=== PATIENT | female | born 1950 | race Caucasian/White ===

== ENCOUNTER 2019-09-12 01:14 | Day surgery (SDC) | payer MEDICARE, SELFPAY ==
[2019-08-24 13:11] VITALS: BP 142/66; PULSE 108; RESP 18; TEMP 36.6; O2SAT 99; BMI 25.1
--- NOTE | 2019-09-07 14:56 | HP_ITS ---
DATE OF SERVICE: 09/12/2019 ADMIT DIAGNOSIS: Degenerative joint disease, left knee. HISTORY OF PRESENT ILLNESS: The patient is a 68-year-old female patient of Dr. Calero presents today for a left total knee arthroplasty. She has had an [place] partial knee replacement done on the right, which she has done well. Unfortunately, she continues to have symptoms in the left knee. She has fwwk-fs-nfrr arthritis in the medial compartment with some narrowing in the lateral compartment on a stress view as well as some mild subluxation. Dr. Mauro does not feel she would be an ideal candidate for partial knee and therefore has recommended a total knee arthroplasty. She has tried anti-inflammatories in the past, which does not help. She has not had any cortisone injections in her knees. She has had them in her opposite knee prior to her surgery and did not give her relief, so she has declined shots. She is having symptoms on a very regular basis. She has reached a point where she feels she is ready to proceed with total knee arthroplasty. PAST MEDICAL HISTORY: Significant for the partial knee in the past. She has had a hysterectomy as well. CURRENT MEDICATIONS: She takes sertraline 25 mg daily. States she has reaction with codeine and oxycodone, which both give her headaches. FAMILY HISTORY: Significant for stroke and cancer. SOCIAL HISTORY: She is a nonsmoker. REVIEW OF SYSTEMS: Negative. PHYSICAL EXAMINATION: VITAL SIGNS: She is 5 feet 6.5 inch, 154 pounds. Other vital signs per nursing on the morning of surgery. HEENT: Grossly normal. LUNGS: Clear bilaterally. HEART: Regular rate and rhythm. EXTREMITIES: She walks without a limp. Her left knee range of motion is from 7 to 140. She has [id number]-[id number] effusion. She has a large popliteal cyst palpable, which is nonpulsatile. 2+ dorsalis pedis, posterior tibial pulse. Normal stability with mild medial pseudolaxity. SKIN: All normal. Hip range of motion is full without discomfort. Negative Stinchfield maneuver. Normal quad strength. Normal sensation in the left lower extremity. X-RAYS: Demonstrate fqkx-tr-fzlp arthritis in the medial compartment with mild lateral compartment arthritis. IMPRESSION: The patient has severe medial compartment arthritis with continued symptoms. She would like to proceed with total knee at this point. Surgical procedure as well as risks and complications were discussed. All questions were answered. We will proceed. The patient will see her primary care doctor for presurgical clearance. She will avoid any aspirin and ibuprofen products 1 week prior to surgery. Due to her reactions with codeine and oxycodone, we will try to maximize non-narcotic use with Celebrex twice a day. We will also use Lovenox for DVT prophylaxis rather than Eliquis. We can use Celebrex twice a day. Dr. Mauro has also discussed with her the use of gabapentin as well. Her nasal swab was negative. Her creatinine is elevated at 1.10 with a GFR of 49. Rest of her Chem panel is within normal limits. Hemoglobin 13.8 and platelets are 198. D I MT: Mary
[2019-09-12] VITALS (11 sets, daily range): BP systolic 110–137; BP diastolic 55–79; PULSE 84–107; RESP 12–18; TEMP 36.5–36.8; O2SAT 96–100; BMI 24.6
--- NOTE | ~2019-09-12 | XR_ITS ---
EXAMINATION: XR knee LT 2V DATE: 09/12/2019 11:02 INDICATION: Total left knee arthroplasty. Postop. TECHNIQUE: 2 views of left knee were obtained. COMPARISON: None. FINDINGS: There is a total left knee arthroplasty without patellar resurfacing in near-anatomic align ment. No fracture. There are tiny osteophytes of the patella. There is gas in the knee joint and soft tissues, consistent with recent surgery. IMPRESSION: 1. Total left knee arthroplasty in near-anatomic alignment. Reviewed, dictated and finalized at location A. IAC CARE UNIT NURSE
[2019-09-12] MEDS: LACTATED RINGERS 1,000 ML 30 ML IV CONT ×2 (06:30→10:58)
[2019-09-12] MEDS: IBUPROFEN IV 800 MG/200 ML 800 MG/200 ML BAG 400 MG IVPB (06:30)
--- NOTE | 2019-09-12 06:44 | WPDANESEPPF ---
Anes - Initial Pre Proc Eval Procedure: Operation Date: 09/12/19 07:30 Proposed Procedures p Left Total Knee Arthroplasty - Ermias Mauro MD Date/Time: 09/12/19 06:44 Surgeon: Ermias Mauro MD Pre Op Diagnosis: OA Left Knee Patient Data Age: 68 Gender: F Height: 1.68 m Weight: 69.2 kg Last Vital Signs Temp 36.6 C 08/24/19 13:11 Pulse 108 H 08/24/19 13:11 Resp 18 08/24/19 13:11 BP 142/66 H 08/24/19 13:11 Pulse Ox 99 08/24/19 13:11 Allergies Allergy/AdvReac Type Severity Reaction Status Date / Time adhesive tape Allergy Intermediate Blister Verified 09/12/19 06:12 tramadol Allergy Intermediate Other Verified 09/12/19 06:12 codeine Allergy Unknown Nausea and Verified 09/12/19 06:12 Vomiting meperidine AdvReac Severe KIDNEY Verified 09/12/19 06:12 ISSUES oxycodone AdvReac Intermediate HARD TO Verified 09/12/19 06:12 WAKE UP Home Medications Medication Instructions Recorded Confirmed Type sertraline 12.5 mg PO DAILY 08/24/19 09/12/19 History ECG: Date of Service: 08/24/19 Procedure(s): CA 12 lead EKG Accession Number(s): [id number] cc: ~ Measurements Intervals [place] Rate: 93 P: 59 HI: 138 QRS: 6 QRSD: 73 T: 71 QT: 303 QTc: 377 Interpretive Statements SINUS RHYTHM LOW QRS VOLTAGE IN PRECORDIAL LEADS BORDERLINE R WAVE PROGRESSION, ANTERIOR LEADS BORDERLINE T WAVE ABNORMALITY- LATERAL LEADS BASELINE ARTIFACT- I, II, III, AVR, AVL, AVF BORDERLINE ECG Electronically Signed On 08-24-2019 15:24:16 TOPOGRAPHIC COMPUTATOR by Ezekiel Daly D.O. Dictated By: Ezekiel Daly DO 08/24/19 1403 Patient hx anesthesia problems: post op nausea/vomiting Family hx anesthesia problems: none PMFSH Past Medical History Medical History (Updated 09/12/19 @ 06:47 by Nolberto Hansen MD) Anxiety Arthritis Hypercholesterolemia IBS (irritable bowel syndrome) Family History Family History (Updated 07/07/16 @ 10:18 by DOCTOR UNKNOWN) Mother Cerebrovascular accident Sibling Family history of arthritis Family history of heart disease in male family member before age 55 Father Family history of malignant neoplasm Grandparent Family history of malignant neoplasm of brain Family history of emphysema Family history of heart disease in male family member before age 55 Social History Social History Smoking status: Never smoker Second hand tobacco smoke exposure: Yes Alcohol intake: current Anes - Eval Final PreProcedure Day of Procedure 09/12/19 06:44 Patient weight: normal Heart: regular rate and rhythm Lungs: clear to auscultation and normal air movement Airway: Mallampati scale class II Neurological: alert and oriented Last oral intake: >/= 8 hours ASA classification: II Emergent: no Anesthetic plan: proceed Anesthesia type and monitoring: general LMA Informed Consent: The patient's anesthetic plan and its attendant risks and benefits were discussed with the patient/family/POA. Questions were solicited and answers provided to the satisfaction of the patient/family/POA.
[2019-09-12] MEDS: SCOPOLAMINE 1.5 MG PATCH TRANSDERM (07:19)
--- NOTE | 2019-09-12 07:22 | WPDHPUPDATE1 ---
History and Physical Update Update Date/Time: 09/12/19 07:22 History and Physical has been reviewed, including an updated exam of the patient. There are NO changes in the patient's condition. Risks, benefits, and alternatives have been discussed and questions answered. Patient agrees to proceed with procedure.
[2019-09-12] MEDS: ceFAZolin 2 GM/D5W 50 ML 2 GM/50 ML BAG IVPB (07:30)
[2019-09-12] MEDS: ceFAZolin SODIUM 1 GM VIAL 3 GM IRRIGATION (08:07)
[2019-09-12] MEDS: GENTAMICIN BONE CEMENT REFOBACIN 1 EACH TOPICAL (08:08)
[2019-09-12] MEDS: ceFAZolin SODIUM 1 GM VIAL IV PUSH (09:54)
--- NOTE | 2019-09-12 11:33 | PM.PROC ---
Procedure Note - Detailed Date of procedure: 09/12/19 Pre-op diagnosis: OA Left Knee Osteoarthritis left knee Post-op diagnosis: same Procedure performed: Left total knee arthroplasty Description of procedure: Patient brought to the operating room general anesthesia was administered left knee prepped draped usual fashion. She received 2 g of Ancef 1 g of vancomycin preoperatively. Because of her history from severe nausea with narcotics in anesthesia a scopolamine patch was applied she received 8 mg of Decadron IV. Left knee was prepped draped usual fashion. Limb was exsanguinated tourniquet elevated to 250 mm Hg. 7 inches longitudinal midline incision was used and a vastus medialis splitting approach utilized. Infrapatellar and suprapatellar fat pads were excised and a quadriceps synovectomy carried out. The patella showed some marginal osteophytes but had no thinning of the articular cartilage. Osteophytes were trimmed. A conservative lateral facetectomy performed. I felt her patella was most suitable for non resurfacing. A guide jackie was inserted down the femoral canal after aspiration canal contents using the 5? valgus cutting bushing 9 mm of bone removed the distal femur. next the tibial plateau was cut removing 4 mm of the low point of the medial tibial plateau. Meniscus remnants were excised the anterior medial and medial tibial osteophytes removed PCL recessed. Flexion gap measured 8 mm medially 10 laterally. Whitesides line and the trans epicondylar axis were drawn on the femur. 2? of external rotation matched Whitesides line and the condylar axis appropriately. Using the 67.5 vanguard cutting block AP and chamfer cuts were made. this gave a femoral trial that fit line to line throughout. Alignment of the tibial cut was confirmed to be accurate. With a 10 mm CR insert in place we had plate medially and laterally little tighter medially than laterally and we lacked extension but we were tighter medially and laterally. the tibia was sized to a 71 punched and the microsoft bi architect medial osteophyte removed the tibial plateau. On trialing the 10 mm PS insert at 90? gave appropriate stability with 1 mm medial 1-2 mm lateral opening at 90?. We lacked 10? of extension. there was no plate medially or laterally in this position. additional 2 mm of bone removed the distal femur. Posterior femoral osteophytes removed. a very conservative central capsular release performed and we trialed again. this time the knee had a fairly positive bounce. There was again no plate medially or laterally in full extension. therefore an additional mm of bone was removed the distal femur chamfer cuts revisited in this time on trialing the knee had full extension the 0.5 mm medial opening 1-2 lateral opening again appropriate stability in flexion in flexion and patellar tracking was central throughout range of motion. lug holes were drilled on the femur trial components removed step drill used to make multiple perforations in the tibial plateau and distal posterior femur bony surfaces thoroughly irrigated and dried. The 2 batches of Biomet cement 1 continue gentamicin powder the cement was applied the tibial component and the femoral component. Cement applied to tibia pressurized in the bone fully seated cement applied to the femur and the femoral component fully seated we placed 11 mm 5 and 1 trial insert and brought the knee out to close to full extension for cement pressurization and tourniquet was released and approximately 110 min. After cement hardening excess cement was removed. no local anesthetic cocktail was injected during the cement curing process. hemostasis was confirmed. We trialed with the 10 insert and this gave us the same findings as above and 10 was placed without difficulty locked the locking pin range of motion stability patellar tracking reconfirmed. Arthrotomy was closed 2. Vicryl Plus 1. You directional strata fix kyara suture and 1. Vicryl in the vastus split. Skin close
[2019-09-12] MEDS: ONDANSETRON INJ 4 MG/2 ML VIAL IV PUSH (11:35)
--- NOTE | 2019-09-12 12:18 | ADMGEN ---
This patient, Katy Roman, was admitted to -. Patient/family oriented to hospital policies and general routines including ID bracelet, bed and alarms, visiting hours, pain management, procedures, bathroom and other care routines, personal items, smoking policy, room service/diet, and visiting hours. Valuables list has been completed. Information on how to activate the Rapid Response Team has been discussed. Patient/Family are encouraged to report perceived risks to care and to ask questions if they do not understand what they are told or what they should do.
[2019-09-12] MEDS: ACETAMINOPHEN 500 MG TABLET 1000 MG PO ×2 (13:58→20:19)
--- NOTE | 2019-09-12 14:37 | PM.IMCN ---
Assessment and Plan Assessment and plan (1) S/P total knee arthroplasty: Code(s): Z96.659 - Presence of unspecified artificial knee joint Status: Acute Assessment and Plan: Postop care per Ortho. DVT prophylaxis per ortho and looks like she is on Eliquis. She also has bilateral SCDs. Patient had some postop nausea but requested that the scopolamine patch. Moved due to the dryness in her eyes and her mouth. She has no discomfort at this time. (2) Anxiety: Code(s): F41.9 - Anxiety disorder, unspecified Status: Chronic Assessment and Plan: Continue with Zoloft. Patient stated that she uses a low very low dose also for palpitations due to her anxiety and has not had any palpitations very long time. (3) Hypercholesterolemia: Code(s): E78.00 - Pure hypercholesterolemia, unspecified Status: Chronic Assessment and Plan: Diet control HPI Data of Consult Consult date: 09/12/19 Requesting Physician: Ermias Mauro MD Primary Care Provider: Ermias Calero, Consult Narrative Narrative: Katy Roman is a 68 year old female who has severe degenerative joint disease. The patient had a partial right knee approximately 3 years ago and did fairly well with. She tried injections with her right knee in the did work so she did not attempt any injections in the knee. Patient continue to have moderate discomfort to the left knee and had bone on bone arthritis in the medial compartment with some narrowing in the lateral compartment stress views. The patient tried anti-inflammatories in the past which did not help. Initially she was going to have a partial left the but it was decided to do a total arthroplasty today. Patient is taking pain medication in the past and the pain has affected her daily life. See operative note per Dr. mauro. The patient had some postop nausea and had a scopolamine patch on however caused her to have very dry eyes and mouth and was removed. She has no complaints of any nausea at this time. No complaints of any discomfort. Date of service 09/12/[address] mauro for the opportunity to consult on this pleasant lady. Review of Systems Review of Systems: Narrative: Dry eyes and dry mouth All systems reviewed & are unremarkable except as noted in HPI and below Constitutional: Constitutional: Reports as per HPI and Reports no additional constitutional complaints Eyes: Eyes: Reports as per HPI and Reports no additional eye complaints ENT: Reports system reviewed and no additional complaints, except as documented and Reports Normal hearing present Cardiovascular: Cardiovascular: Reports no additional cardiovascular complaints Respiratory: Respiratory: Reports no additional respiratory complaints and Reports no additional respiratory complaints Gastrointestinal: Gastrointestinal: Reports as per HPI and Reports no additional gastrointestinal complaints Musculoskeletal: Musculoskeletal: Reports no additional musculoskeletal complaints Integumentary/Breasts: Skin/Breast: Reports system reviewed and no additional complaints, except as docu and Reports as per HPI Neurologic: Reports system reviewed and no additional complaints, except as documented, Reports as per HPI and Reports Normal hearing present Psychiatric: Psychiatric: Reports no additional psychiatric complaints and Reports as per HPI Endocrine: Endocrine: Reports no additional endocrine complaints Hematologic/Lymphatic: Hematologic/Lymphatic: Reports no additional hematologic/lymphatic complaints Allergic/Immunologic: Allergic/Immunologic: Reports no additional allergic/immunologic complaints [facility] Past Medical History Medical History (Updated 09/12/19 @ 14:48 by Oriana Benton NP) Anxiety Arthritis Benign tumor of skin of perineum Removed Hypercholesterolemia IBS (irritable bowel syndrome) Palpitation Surgical History Surgical History (Updated 09/12/19 @ 14:49 by Cesario
[2019-09-12] MEDS: DOCUSATE SODIUM 100 MG CAPSULE PO (20:19)
[2019-09-13] MEDS: ACETAMINOPHEN 500 MG TABLET 1000 MG PO ×2 (01:43→08:34)
[2019-09-13 02:00] VITALS: BP 108/50; PULSE 88; RESP 18; TEMP 37.2; O2SAT 97
[2019-09-13 03:31] VITALS: BP 107/58; PULSE 83
[2019-09-13 05:59] VITALS: BP 109/48; PULSE 92; RESP 18; TEMP 36.9; O2SAT 95
[2019-09-13 06:36] LABS: Eosinophils Percent Auto 0.2 % (0-4.4); Hemoglobin 10.2 g/dL (12.0-15.0); Immature Granulocyte Absolute 0.13 K/mm3 (0.00-0.031); Immature Granulocyte Percent A 1.6 % (0-0.5); Lymphocytes Absolute Auto 1.37 K/mm3 (0.9-3.2); Lymphocytes Percent Auto 16.7 % (18.3-44.2); Mean Corpuscular Hemoglobin 32.3 pg (26-34); Mean Corpuscular Volume 94.9 fl (80-100); Mean Platelet Volume 9.8 fl (7.4-10.4); Monocytes Absolute Auto 1.7 K/mm3 (0.1-0.6); Monocytes Percent Auto 21.3 % (2.6-8.5); Neutrophils Absolute Auto 4.9 K/mm3 (1.3-6.7); Neutrophils Percent Auto 60.2 % (45.5-73.1); Platelet Count Result 153 k/mm3 (150-375); Red Blood Count 3.16 M/mm3 (4.2-5.4); Red Cell Distribution Width 12.5 % (11.5-14.5); White Blood Count 8.2 K/mm3 (4.5-10.0)
[2019-09-13 06:49] LABS: Blood Urea Nitrogen 11 mg/dL (7-17); Calcium 8.5 mg/dL (8.4-10.2); Carbon Dioxide 22 mmol/L (22-30); Chloride 103 mmol/L (98-107); Estimated CRCL calculation 48 ml/min; Estimated Glomerular Filt Rate > 60; Glucose 122 mg/dL (65-105); Potassium 3.8 mmol/L (3.4-5.0); Sodium 134 mmol/L (137-145)
--- NOTE | 2019-09-13 07:24 | PM.PNORT ---
Progress Note: A&P Additional Plan POD 1 alert avss no nausea last night, wd-dry NVI, has been up to restroom last night. Having a little more pain this am-block has worn off, PT to work with pt today if does well plan to send home this afternoon Subjective Subjective Date/Time Seen: 09/13/19 07:24 Objective Data Vital Signs Vital Signs: Vital Signs - 24 hr 09/12/19 10:58 09/12/19 11:10 09/12/19 11:25 Temperature Pulse Rate 107 H 107 H 107 H Respiratory Rate 12 14 13 Blood Pressure 129/62 128/72 124/68 Pulse Oximetry 100 97 96 09/12/19 11:40 09/12/19 11:55 09/12/19 12:05 Temperature Pulse Rate 86 106 H 105 H Respiratory Rate 14 14 14 Blood Pressure 137/55 L 118/74 120/78 Pulse Oximetry 99 97 97 09/12/19 12:25 09/12/19 12:55 09/12/19 14:55 Temperature 36.5 C 36.7 C Pulse Rate 97 92 103 H Respiratory Rate 18 18 17 Blood Pressure 125/64 125/71 128/78 Pulse Oximetry 100 100 96 09/12/19 21:55 09/13/19 02:00 09/13/19 03:31 Temperature 36.7 C 37.2 C Pulse Rate 101 H 88 83 Respiratory Rate 18 18 Blood Pressure 110/64 108/50 L 107/58 L Pulse Oximetry 98 97 09/13/19 05:59 Temperature 36.9 C Pulse Rate 92 Respiratory Rate 18 Blood Pressure 109/48 L Pulse Oximetry 95 Intake/Output Intake/Output: Intake & Output 09/10/19 09/11/19 09/12/19 09/13/19 23:59 23:59 23:59 23:59 Intake Total 620 300 Output Total 1100 Balance 620 -800 Meds/Results Medications: Active Medications Generic Name Dose Route Start Last Admin Trade Name Freq PRN Reason Stop Dose Admin Acetaminophen 1,000 mg 09/12/19 14:00 09/13/19 01:43 Tylenol Tablet PO 1,000 mg Q6H [place] Administration Apixaban 2.5 mg 09/13/19 09:00 Eliquis PO 09/24/19 21:01 Q12HR [place] Artificial Tears 1 drop 09/12/19 14:40 Artificial Tears EACH EYE QID PRN Dry Eye(s) Docusate Sodium 100 mg 09/12/19 21:00 09/12/19 20:19 Colace Capsule PO 100 mg Q12HR [place] Administration Fentanyl Citrate 25 mcg 09/12/19 06:43 Sublimaze IV PUSH Q2M PRN Pain Hydromorphone HCl 0.25 mg 09/12/19 06:43 Dilaudid Inj IV PUSH Q5M PRN Pain Lactated Ringer's 1,000 mls @ 30 mls/hr 09/11/19 13:50 09/12/19 20:20 Lr - Lactated Ringers Iv IV CONT Not Given .Q24H [place] Lactated Ringer's 1,000 mls @ 30 mls/hr 09/12/19 06:45 09/13/19 04:40 Lr - Lactated Ringers Iv IV CONT Not Given .Q24H [place] Lactated Ringer's 1,000 mls @ 30 mls/hr 09/12/19 06:50 09/13/19 04:40 Lr - Lactated Ringers Iv IV CONT Not Given .Q24H [place] Cefazolin Sodium 1 gm in 50 mls @ 100 mls/hr 09/12/19 18:00 09/13/19 02:13 Ancef 1 Gm/D5w 50 Ml Pm IVPB 09/13/19 10:29 Infused Q8H [place] Infusion Dextrose/Sodium Chloride 1,000 mls @ 100 mls/hr 09/12/19 12:16 Dextrose 5% Sodium Chloride 0.45% IV CONT .Q10H [place] Vancomycin HCl 750 mg in 250 mls @ 250 mls/hr 09/12/19 19:00 09/13/19 06:18 Vancomycin 750 Mg/D5w 250 Ml IVPB 09/13/19 07:59 250 mls/hr Q12H [place] Administration Midazolam HCl 1 mg 09/12/19 06:48 Versed IV PUSH PRN PRN Agitation Naloxone HCl 0.1 mg 09/12/19 12:16 Narcan IV PUSH Q2M PRN Opiate Reversal Ondansetron HCl 4 mg 09/12/19 06:43 09/12/19 11:35 Zofran Inj IV PUSH 4 mg ONCE PRN Administration Nausea Oxycodone HCl 5 mg 09/12/19 06:43 Roxicodone Ir Tablet PO ONCE PRN Pain Phenol 1 spray 09/12/19 17:31 Chloraseptic Ewen MUCOUS MEM PRN PRN Sore Throat Polyethylene Glycol 17 gm 09/13/19 09:00 Miralax PO QAM [place] Senna 374 mg 09/12/19 21:00 09/12/19 20:19 Senokot Tablet PO 374 mg HS [place] Administration Senna 187 mg 09/12/19 17:00 09/12/19 17:21 Senokot Tablet PO 187 mg BID [place] Administration Sertraline HCl 12.5 mg 09/13/19 09:00 Zoloft PO DAILY [place] Tapentadol 50 mg 09/12/19 12:16 09/13/19 03:39 Nucynta PO 50
[2019-09-13] MEDS: SERTRALINE HCL 12.5 MG TABLET PO (08:34)
[2019-09-13] MEDS: polyethylene glycoL 3350 17 GM POWD.PACK PO (08:35)
[2019-09-13] MEDS: APIXABAN 2.5 MG TABLET PO (08:35)
[2019-09-13] MEDS: DOCUSATE SODIUM 100 MG CAPSULE PO (08:35)
--- NOTE | 2019-09-13 09:27 | DS_ITS ---
DATE OF DISCHARGE: 09/13/2019 DIAGNOSIS: Degenerative joint disease, left knee. HOSPITAL COURSE: The patient underwent left total knee arthroplasty by Dr. Mauro on 09/12, underwent procedure without any complications. Postoperatively, she has been afebrile. Vital signs have been stable. Neurovascularly intact. Her wound is dry. She has a Mepilex dressing over it. She is on Eliquis for 2 weeks followed by baby aspirin twice a day for 6 weeks for DVT prophylaxis. She is weightbearing as tolerated. Pain is well controlled. We are using Nucynta for pain control due to multiple allergies to other medications. We are avoiding Celebrex due to a history of elevated creatinine. The patient is doing well with therapy. Her pain is well controlled on postop day 1. She was up to the restroom the night of surgery. Postop day 1, her creatinine was down to 0.9, GFR is greater than 60. Preop her creatinine was 1.1, GFR was 49, which shows that she has some kidney disease and therefore will avoid Celebrex completely. The patient can be discharged to home on 09/13. She is advised to keep the leg elevated to prevent swelling, but do her exercise on a regular basis. She has outpatient therapy starting next Tuesday at our [place] office. She is advised if any questions or concerns, she is to call the office, otherwise we will see her on her appointed date. Alma Rosa I MT: Mary
--- NOTE | 2019-09-13 12:47 | PM.IMPN ---
Progress Note: A&P Assessment and Plan (1) S/P total knee arthroplasty: Code(s): Z96.659 - Presence of unspecified artificial knee joint Status: Acute Assessment and Plan: Status post left knee arthroplasty postop day 1. Patient be seen by her surgeon further recommendation to follow most likely patient be discharged home today (2) Arthritis: Code(s): M19.90 - Unspecified osteoarthritis, unspecified site Status: Acute Assessment and Plan: Plan is above (3) Anxiety: Code(s): F41.9 - Anxiety disorder, unspecified Status: Chronic Assessment and Plan: Clinically stable Time Spent With Patient Time with patient: 15 - 25 minutes Subjective Date/time seen: 09/13/19 12:47 Patient is 68-year-old female with history of anxiety hyperlipidemia severe osteoarthritis of left knee status post left knee total arthroplasty postop day 1. Today patient states the pain in left knee is worse than yesterday see was able to participate in PT after she was given pain medication, patient denies any chest pain shortness of breath palpitation fever or chills Review of Systems Review of Systems: All systems reviewed & are unremarkable except as noted in HPI and below Exam Const: General: comfortable and no acute distress HENMT: General nose exam: Normal nares present Mouth: Yes moist mucous membranes Eyes: General: appearance normal, both eyes and all related structures Sclera: sclerae normal Neck: Neck: supple Resp: Effort & Inspection: normal respiratory effort Auscultation: clear to auscultation bilaterally Cardio: Rate: regular rate Rhythm: regular rhythm Skin: General skin exam: normal color and no rashes or lesions noted Neuro: Speech: normal speech Sensory Exam: normal sensation Extrem: Other: Left knee immobilizer Psych: Affect: Anxious affect present Objective Data Vital Signs Vital Signs: Vital Signs - 24 hr 09/12/19 12:55 09/12/19 14:55 09/12/19 21:55 Temperature 98.0 F 98.1 F Pulse Rate 92 103 H 101 H Respiratory Rate 18 17 18 Blood Pressure 125/71 128/78 110/64 Pulse Oximetry 100 96 98 09/13/19 02:00 09/13/19 03:31 09/13/19 05:59 Temperature 98.9 F 98.4 F Pulse Rate 88 83 92 Respiratory Rate 18 18 Blood Pressure 108/50 L 107/58 L 109/48 L Pulse Oximetry 97 95 Intake/Output Intake/Output: Intake & Output 09/10/19 09/11/19 09/12/19 09/13/19 23:59 23:59 23:59 23:59 Intake Total 620 780 Output Total 1100 Balance 620 -320 Meds/Results Radiology Results: ITS Impressions Knee X-Ray 09/12/19 11:16 IMPRESSION: 1. Total left knee arthroplasty in near-anatomic alignment. Labs Labs: Laboratory Results - last 24 hr 09/13/19 09/13/19 06:17 06:17 WBC 8.2 RBC 3.16 L Hgb 10.2 L D Hct 30.0 L MCV 94.9 MCH 32.3 MCHC 34.0 RDW 12.5 Plt Count 153 MPV 9.8 Immature Gran % (Auto) 1.6 H Neut % (Auto) 60.2 Lymph % (Auto) 16.7 L Andrews % (Auto) 21.3 H Eos % (Auto) 0.2 Baso % (Auto) 0.0 L Lymph # (Auto) 1.37 Andrews # (Auto) 1.7 H Eos # (Auto) 0.0 Baso # (Auto) 0.0 Abs Immat Gran (auto) 0.13 H Absolute Neuts (auto) 4.9 Absolute Nucleated RBC 0.0 Nucleated RBC % 0.0 Sodium 134 L Potassium 3.8 Chloride 103 Carbon Dioxide 22 BUN 11 D Creatinine 0.90 Estim Creat Clear Calc 48 Estimated GFR > 60 Glucose 122 H Calcium 8.5 Quality VTE Prophylaxis VTE prophylaxis: mechanical ordered and pharmacologic ordered
== END 2019-09-13 12:00 | disposition home or self-care (01) ==
LOC: ANHSURGERY 07:19 → ANH3MEDSUR 12:26
PROVIDERS: PCP Internal Medicine; Visit Provider Orthopaedic Surgery
PROC: (CPT 27447; principal; 2019-09-12 07:30)
DX: M17.12 Unilateral primary osteoarthritis, left knee (principal); E78.00 Pure hypercholesterolemia, unspecified; F41.9 Anxiety disorder, unspecified; K58.9 Irritable bowel syndrome, unspecified
CPT/HCPCS: 27447; 36415; 71046; 73560; 80048; 80307; 82040; 83036; 85025; 86850; 86900; 86901; 87070; 93005; 97110; 97116; 97161; 97165; 97530; A9270; C1713; C1776; J0131; J0171; J0690; J1100; J1741; J2270; J2405; J2704; J2795; J3010; J3370; J7120

== ENCOUNTER → 2020-05-29 14:07 | Outpatient (CLI) | payer MEDICARE, SELFPAY ==
--- NOTE | ~2020-05-29 | US_ITS ---
US retroperitoneal comp 05/29/2020 14:31 Procedure: Realtime transabdominal ultrasound of the kidneys and bladder. Indication: Elevated creatinine Comparison: No prior studies for comparison. Findings: Renal echotexture is normal bilaterally without hydronephrosis, contour deforming mass or r enal calculus. The right kidney measures 9.7 cm and left kidney measures 9.9 cm. Bladder within norm al limits. Impression: 1: Unremarkable renal ultrasound. No stones, masses or hydronephrosis. Reviewed, dictated and finalized at location B. Impression: 1: Unremarkable renal ultrasound. No stones, masses or hydronephrosis.
== END ==
PROVIDERS: PCP Internal Medicine; Visit Provider Registered Nurse
DX: R79.89 Other specified abnormal findings of blood chemistry (principal)
CPT/HCPCS: 76770

== ENCOUNTER → 2020-07-24 10:47 | Outpatient (CLI) | payer MEDICARE, SELFPAY ==
--- NOTE | ~2020-07-24 | MM_ITS ---
EXAMINATION: MM screening jose BI w keyana HISTORY: Screening mammogram TECHNIQUE: Craniocaudal and mediolateral oblique 3-D tomosynthesis images were obtained and synthetic 2-D images were generated. CAD analysis was submitted and interpreted. COMPARISON: No prior mammogram is available for comparison at this institution. BREAST PARENCHYMAL COMPOSITION: The breasts are heterogeneously dense, which may obscure small masses . FINDINGS: RIGHT BREAST: There is architectural distortion right breast with surgical change. No suspicious calc ification are identified. LEFT BREAST: There is no evidence of suspicious mass, calcification, or architectural distortion to s uggest malignancy. IMPRESSION: 1. Architectural distortion subareolar aspect of right breast which may represent the patient's basel ine however no comparison is currently available. 2. Comparison with prior mammograms is necessary. BI-RADS Category 0: Incomplete: Needs comparison with prior mammograms. Reviewed, dictated and finalized at location A. NG DRAFTER IMPRESSION: 1. Architectural distortion subareolar aspect of right breast which may represe nt the patient's baseline however no comparison is currently available. 2. Comparison with prior mammograms is necessary. BI-RADS Category 0: Incomplete: Needs comparison with prior mammograms.
== END ==
PROVIDERS: PCP Registered Nurse; Visit Provider Registered Nurse
DX: Z12.31 Encounter for screening mammogram for malignant neoplasm of breast (principal); R92.8 Other abnormal and inconclusive findings on diagnostic imaging of breast
CPT/HCPCS: 77063; 77067

== ENCOUNTER 2021-05-16 09:01 | Outpatient (CLI) | payer MEDICARE, SELFPAY ==
--- NOTE | ~2021-05-16 | CT_ITS ---
EXAMINATION: CT pelvis wo con DATE: 05/16/2021 09:42 INDICATION: Right hip pain. TECHNIQUE: High resolution computed tomography (CT) of the pelvis was performed without intravenous c ontrast. Additional sagittal and coronal reconstructions were performed. Automated exposure control a nd iterative reconstruction technique were employed. The dose-length product was 198.80 mGy-cm. COMPARISON: Radiograph dated 03/06/2021 FINDINGS: 3.6 x 3.1 x 2.0 cm lesion at the right posterior iliac spine with well-defined circumferential dense sclerotic rim and a central coarse calcification with intervening fat attenuation most consistent wit h an intraosseous lipoma with chronic central necrosis. Differential would include less likely bone i nfarct. 7 mm anterolisthesis L4 on L5 with mild disc height loss and severe bilateral facet osteoarth ritis. This results in mild central canal stenosis and moderate left and mild to moderate right neura l foraminal stenosis. Mild left hip osteoarthritis. Mild to moderate osteoarthritis at the right hip with 2.1 x 1.7 cm region of subarticular cystic change at the apex of the right femoral head. There i s moderate diverticulosis along the descending and sigmoid colon without adjacent inflammatory change to suggest diverticulitis. Appendix and visualized portion of the small bowel are normal. Bladder is normal. The uterus is not identified and has likely been surgically resected. No pathologically enla rged abdominal or pelvic lymphadenopathy. IMPRESSION: 1. Mild to moderate right hip osteoarthritis with large region of subarticular cystic change at the a pex of the right femoral head. 2. 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 3. Moderate lower lumbar spondylosis with 7 mm anterolisthesis L4 on L5. 4. Diverticulosis. Reviewed, dictated and finalized at location A. IMPRESSION: 1. Mild to moderate right hip osteoarthritis with large region of subarticular cystic change at the apex of the right femoral head. 2. 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 3. Moderate lower lumbar spondylosis with 7 mm anterolisthesis L4 on L5. 4. Diverticulosis.
== END 2021-05-16 09:02 | disposition home or self-care (01) ==
PROVIDERS: PCP Internal Medicine; Visit Provider Orthopaedic Surgery
DX: M16.11 Unilateral primary osteoarthritis, right hip (principal); K57.30 Diverticulosis of large intestine without perforation or abscess without bleeding; M47.896 Other spondylosis, lumbar region
CPT/HCPCS: 72192

== ENCOUNTER 2021-06-18 13:24 | Outpatient (CLI) | payer MEDICARE, SELFPAY ==
--- NOTE | ~2021-06-18 | XR_ITS ---
EXAMINATION: XR lg joint inject/asp w image DATE: 06/18/2021 14:21 INDICATION: Unilateral primary osteoarthritis, right hip. TECHNIQUE: A time-out was performed to verify the patient's name, date of , and procedure to b e performed. The procedure including the risks, benefits, and alternatives was discussed with the pat ient. Risks discussed included bleeding and infection. The patient understood the risks and agreed to proceed. The skin overlying the right hip joint was prepped and draped in usual sterile fashion. A nesthetic was administered with 1% lidocaine subcutaneously. A 22 G needle was advanced under fluoro scopic guidance into the joint. Injection of 1 mL of Omnipaque 240 confirmed intra-articular positio n of the needle. Subsequently, injectate consisting of 5 mL 1% lidocaine and 2 mL 10 mg/mL Kenalog w as instilled. The needle was removed and the entry site was cleaned and dressed. There were no imme diate complications. Fluoroscopy exposure time was 0.0 minutes. The total number of images was 2. FINDINGS: Real-time fluoroscopy demonstrates the needle in the right hip joint. Patient's pain prior to procedure:0/10. There is moderate right hip osteoarthritis with a large subchondral cyst in superi or femoral head. IMPRESSION: 1. Fluoroscopy guided right hip joint injection of local anesthetic and steroid. Reviewed, dictated and finalized at location A. STEMMER IMPRESSION: 1. Fluoroscopy guided right hip joint injection of local anesthetic and steroid .
== END 2021-06-18 13:25 | disposition home or self-care (01) ==
PROVIDERS: PCP Internal Medicine; Visit Provider Orthopaedic Surgery
DX: M25.551 Pain in right hip (principal); M16.11 Unilateral primary osteoarthritis, right hip
CPT/HCPCS: 20610; 77002; J3301; Q9966

== ENCOUNTER 2021-09-08 07:57 | Outpatient (CLI) | payer MEDICARE, SELFPAY ==
[2021-09-08 09:14] LABS: Basophils Percent Auto 0.4 % (0.2-1.2); Eosinophils Percent Auto 1.1 % (0-4.4); Hematocrit 35.5 % (37.0-47.0); Hemoglobin 12.6 g/dL (12.0-15.0); Immature Granulocyte Absolute 0.01 K/mm3 (0.00-0.031); Immature Granulocyte Percent A 0.4 % (0-0.5); Lymphocytes Absolute Auto 1.34 K/mm3 (0.9-3.2); Mean Corpuscular HGB Conc 35.5 g/dl (32-36); Mean Corpuscular Hemoglobin 32.9 pg (26-34); Mean Corpuscular Volume 92.7 fl (80-100); Mean Platelet Volume 9.9 fl (7.4-10.4); Monocytes Absolute Auto 0.5 K/mm3 (0.1-0.6); Monocytes Percent Auto 17.9 % (2.6-8.5); Neutrophils Percent Auto 33.2 % (45.5-73.1); Platelet Count Result 177 k/mm3 (150-375); Red Blood Count 3.83 M/mm3 (4.2-5.4); Red Cell Distribution Width 12.2 % (11.5-14.5); White Blood Count 2.9 K/mm3 (4.5-10.0)
[2021-09-08 09:21] LABS: Albumin Level 4.6 g/dL (3.5-5.1); Estimated Glomerular Filt Rate 55; Glucose 104 mg/dL (65-110)
[2021-09-08 09:25] LABS: Urine Cotinine NEGATIVE
[2021-09-08 09:49] LABS: Hemoglobin A1C 5.6 % (<5.7)
== END 2021-09-08 07:58 | disposition home or self-care (01) ==
LOC: ANHSURGERY 08:03
PROVIDERS: PCP Internal Medicine; Visit Provider Orthopaedic Surgery
DX: Z01.818 Encounter for other preprocedural examination (principal); M16.11 Unilateral primary osteoarthritis, right hip
CPT/HCPCS: 80307; 82040; 82565; 82947; 83036; 85025; 87081

== ENCOUNTER 2021-12-25 08:28 | Outpatient (CLI) | payer MEDICARE, SELFPAY ==
--- NOTE | 2021-12-25 08:41 | ECG_ITS ---
Measurements Intervals [place] Rate: 91 P: 61 W[place]: 130 QRS: -40 QRSD: 83 T: 68 QT: 361 QTc: 446 Interpretive Statements SINUS RHYTHM LEFT AXIS DEVIATION LOW QRS VOLTAGE IN LIMB LEADS POOR R WAVE PROGRESSION, ANTERIOR LEADS BASELINE ARTIFACT- I, II, AVR BORDERLINE ECG Electronically Signed On 12-25-2021 8:56:24 CDT by Ezekiel Daly D.O.
[2021-12-25 09:46] LABS: Basophils Percent Auto 0.7 % (0.2-1.2); Eosinophils Percent Auto 1.1 % (0-4.4); Hematocrit 39.6 % (37.0-47.0); Hemoglobin 13.8 g/dL (12.0-15.0); Immature Granulocyte Absolute 0.01 K/mm3 (0.00-0.031); Immature Granulocyte Percent A 0.4 % (0-0.5); Lymphocytes Absolute Auto 1.27 K/mm3 (0.9-3.2); Lymphocytes Percent Auto 45.5 % (18.3-44.2); Mean Corpuscular HGB Conc 34.8 g/dl (32-36); Mean Corpuscular Hemoglobin 32.5 pg (26-34); Mean Corpuscular Volume 93.2 fl (80-100); Mean Platelet Volume 10.5 fl (7.4-10.4); Monocytes Absolute Auto 0.6 K/mm3 (0.1-0.6); Monocytes Percent Auto 20.1 % (2.6-8.5); Neutrophils Absolute Auto 0.9 K/mm3 (1.3-6.7); Neutrophils Percent Auto 32.2 % (45.5-73.1); Platelet Count Result 204 k/mm3 (150-375); Red Blood Count 4.25 M/mm3 (4.2-5.4); Red Cell Distribution Width 12.5 % (11.5-14.5); White Blood Count 2.8 K/mm3 (4.5-10.0)
[2021-12-25 10:04] LABS: Estimated Glomerular Filt Rate 49; Glucose 103 mg/dL (65-110)
[2021-12-25 10:40] LABS: Urine Cotinine NEGATIVE
[2021-12-25 10:53] LABS: Hemoglobin A1C 5.5 % (<5.7)
== END 2021-12-25 08:29 | disposition home or self-care (01) ==
PROVIDERS: PCP Internal Medicine; Visit Provider Orthopaedic Surgery
DX: M16.11 Unilateral primary osteoarthritis, right hip (principal); Z01.818 Encounter for other preprocedural examination; R94.31 Abnormal electrocardiogram [ECG] [EKG]
CPT/HCPCS: 80307; 82040; 82565; 82947; 83036; 85025; 86850; 86900; 86901; 87081; 93005

== ENCOUNTER 2022-10-16 08:32 | Emergency (ER) | payer MEDICARE, SELFPAY ==
[2022-10-16 08:39] VITALS: BP 122/66; PULSE 127; RESP 16; TEMP 38.1; O2SAT 99
--- NOTE | 2022-10-16 09:23 | ED.URI ---
HPI - URI/Sore Throat General Chief Complaint: Upper Respiratory Infection Stated Complaint: uri Time Seen by Provider: 10/16/22 09:23 Source: patient Mode of arrival: ambulatory Limitations: no limitations History of Present Illness HPI Narrative: 71 yo F presents with c/o sore throat, fatigue, chills, headache, bodyaches, fever for 2 days. had recent strep exposure. Is concerned for strep throat. Also reports intermittent sinus pressure/pain, congestion for several wks. All systems reviewed and negative except as noted above. Related Data Home Medications Medication Instructions Recorded Confirmed cholecalciferol (vitamin D3) 25 50 mcg PO DAILY 05/13/21 10/16/22 mcg (1,000 unit) capsule cyclosporine 0.05 % eye drops 1 drp EACH EYE Q12H 05/13/21 10/16/22 (Restasis MultiDose) multivitamin 1 tablet PO QAM 09/08/21 10/16/22 acetaminophen 650 mg 1,300 mg PO Q12H PRN Pain 12/24/21 10/16/22 tablet,extended release (Tylenol Arthritis Pain) Allergies Allergy/AdvReac Type Severity Reaction Status Date / Time meperidine AdvReac Severe KIDNEY Verified 10/16/22 09:11 ISSUES adhesive tape AdvReac Intermediate Blister/RED Verified 10/16/22 09:11 NESS oxycodone AdvReac Intermediate HARD TO Verified 10/16/22 09:11 WAKE UP tramadol AdvReac Intermediate Other Verified 10/16/22 09:11 codeine AdvReac Unknown Nausea and Verified 10/16/22 09:11 Vomiting Review of Systems Review of Systems: CONSTITUTIONAL: reports fever, chills, or sweats. EYES: Denies visual changes, redness, or discharge. ENT: reports rhinorrhea, congestion, sore throat. Denies otalgia. CARDIOVASCULAR: Denies chest pain, palpitations, or edema. RESPIRATORY: Denies cough or dyspnea. GASTROINTESTINAL: Denies abdominal pain, nausea, vomiting, or diarrhea. GENITOURINARY: Denies dysuria or hematuria. SKIN: Denies rash or itching. MUSCULOSKELETAL: Denies back pain, joint pain. Reports myalgia. NEUROLOGIC: Denies headache, numbness, or weakness. PSYCHIATRIC: Denies anxiety or depression. All other systems reviewed are negative, except as documented in HPI. PMFSH Past Medical History Medical History (Updated 10/17/22 @ 00:00 by Meliza Cardona) Anxiety Arthritis Arthritis of right hip Benign tumor of skin of perineum Removed Chronic sinus complaints Hypercholesterolemia IBS (irritable bowel syndrome) Leukopenia Palpitation Right hip pain Surgical History Surgical History (Updated 10/11/22 @ 14:52 by Fernandez Khan MD) H/O arthroplasty Partial right knee H/O breast biopsy Negative etiology H/O: hysterectomy S/P total knee arthroplasty Left on 09/12/2019 Family History Family History Mother Cerebrovascular accident Sibling Family history of arthritis Family history of heart disease in male family member before age 55 Father Family history of malignant neoplasm Small cell carcinoma Grandparent Family history of malignant neoplasm of brain Family history of emphysema Family history of heart disease in male family member before age 55 Social History Social History Social History: She is and has 2 children. Her daughter Kiesha Arauz is her durable power litigation attorney for healthcare. She desires to be a full code. She works as a dietitian here. Lifelong nonsmoker and occasionally drinks wine 2 to 3 times a week. Smoking status: Never smoker Second hand tobacco smoke exposure: No Additional smoking assessment comments: PT DENEIS ALL FORMS OF TOBACCO USE Alcohol intake: current Drinks per week: 3 Substance use: never Substance use type: does not use Living arrangements: alone Occupation/Education: occupation Additional occupation/education comments: Dietitian Gender identity (if verbalized by the patient): Female Spiritual care concerns: No Agree to blood pr
== END 2022-10-16 09:50 | disposition home or self-care (01) ==
PROVIDERS: Emergency Provider Nurse Practitioner Family; PCP Family Medicine
DX: J01.90 Acute sinusitis, unspecified (principal); Z20.818 Contact with and (suspected) exposure to other bacterial communicable diseases; Z20.822 Contact with and (suspected) exposure to COVID-19; E78.00 Pure hypercholesterolemia, unspecified; M16.11 Unilateral primary osteoarthritis, right hip
CPT/HCPCS: 87081; 87426; 87880; 99213; C9803; G0463

== ENCOUNTER → 2023-01-06 15:00 | Outpatient (CLI) | payer MEDICARE, SELFPAY ==
--- NOTE | ~2023-01-06 | MM_ITS ---
EXAMINATION: MM screening jose BI w keyana HISTORY: Screening mammogram TECHNIQUE: Craniocaudal and mediolateral oblique 3-D tomosynthesis images were obtained and synthetic 2-D images were generated. CAD analysis was submitted and interpreted. COMPARISON: 07/24/2020, 05/15/2018 bilateral screening mammogram examinations BREAST PARENCHYMAL COMPOSITION: The breasts are heterogeneously dense, which may obscure small masses . FINDINGS: Stable mild fibroglandular asymmetry since 05/15/2018. There is no evidence of suspicious ma ss, calcification, or architectural distortion to suggest malignancy in either breast. There has been no suspicious interval change. IMPRESSION: 1. No mammographic evidence of malignancy. 2. Recommend routine screening mammography in one year. BI-RADS Category 1: Negative Reviewed, dictated and finalized at location A.
== END ==
PROVIDERS: PCP Family Medicine; Visit Provider Family Medicine
DX: Z12.31 Encounter for screening mammogram for malignant neoplasm of breast (principal)
CPT/HCPCS: 77063; 77067

== ENCOUNTER → 2023-02-03 14:30 | Outpatient (CLI) | payer MEDICARE, SELFPAY ==
--- NOTE | ~2023-02-03 | DEXA_ITS ---
Bone Density Report Name: NAHUM MCNEAL Age: 72 Sex: Female Ethnicity: White Date of : 1950 Indication: postmenopausal; screening for osteoporosis; hysterectomy; Referring Provider: Meghan Mccurdy Study: Bone densitometry was performed. Exam Date: February 03, 2023 Accession number: [id number] Bone Density: Region BMD T-score Z-score Classification AP Spine (L1-L4) 1.224 1.6 3.9 Normal Femoral Neck (Left) 0.751 -0.9 1.1 Normal Total Hip (Left) 0.865 -0.6 1.0 Normal World Health Organization criteria for BMD impression classify patients as: Normal (T-score at or above -1.0), Osteopenia (T-score between -1.0 and -2.5), or Osteoporosis (T-score at or below -2.5). 10-year Fracture Risk: FRAX not reported because: All T-scores for Spine Total, Hip Total, Femoral Neck at or above -1.0 Previous Exams: Region Exam Age BMD T-score BMD Change BMD Change Date g/cm2 vs Baseline vs Previous Total Hip(Left) 02/03/2023 72 0.865 -0.6 -0.010 -0.010 05/18/2018 67 0.875 -0.5 *Denotes significance at 95% confidence level, LSC for Total Hip = 0.027 g/cm2 Clinical Information Provided by Patient: Has used the following medications: Calcium Has the following medical conditions: Hysterectomy Patient maximum height was 66 Menopause Age: 49 Drinks caffeinated beverages Onset of menses at age 12 Number of children 2 Missed period for more than 6 months in a row Impression: The patient has normal bone mass. No significant bone loss was observed. Discussion: BONE DENSITY IS ABOVE THE MINIMUM DESIRABLE LEVEL AT ALL SKELETAL SITES TESTED. This patient?s bone mineral density is above the minimum desirable level (T-score -1.0 or better) at all sites measured. The patient should follow a healthful lifestyle (good nutrition with adequate calcium and vitamin D, and appropriate weight-bearing exercise). Follow-Up: Consider repeating this study in 5 years or sooner if there is some new clinical indication. Reported by: FAWAD on 02/03/2023 2:44:00 PM. Reviewed, dictated and finalized at location Bandar HERRERA
== END ==
PROVIDERS: PCP Family Medicine; Visit Provider Nurse Practitioner Family
DX: Z78.0 Asymptomatic menopausal state (principal)
CPT/HCPCS: 77080

== ENCOUNTER 2023-05-05 08:28 | Outpatient (CLI) | payer MEDICARE, SELFPAY ==
[2023-05-05 08:57] LABS: Basophils Percent Auto 0.7 % (0.2-1.2); Eosinophils Percent Auto 0.7 % (0-4.4); Hematocrit 40.1 % (37.0-47.0); Hemoglobin 13.5 g/dL (12.0-15.0); Lymphocytes Absolute Auto 1.46 K/mm3 (0.9-3.2); Lymphocytes Percent Auto 47.6 % (18.3-44.2); Mean Corpuscular HGB Conc 33.7 g/dl (32-36); Mean Corpuscular Hemoglobin 31.6 pg (26-34); Mean Corpuscular Volume 93.9 fl (80-100); Mean Platelet Volume 10.4 fl (7.4-10.4); Monocytes Absolute Auto 0.5 K/mm3 (0.1-0.6); Monocytes Percent Auto 17.3 % (2.6-8.5); Neutrophils Percent Auto 33.7 % (45.5-73.1); Platelet Count Result 182 k/mm3 (150-375); Red Blood Count 4.27 M/mm3 (4.2-5.4); Red Cell Distribution Width 12.6 % (11.5-14.5); White Blood Count 3.1 K/mm3 (4.5-10.0)
[2023-05-05 10:55] LABS: Alanine Aminotransferase 35 U/L (6-35); Albumin Level 4.7 g/dL (3.5-5.1); Alkaline Phosphatase 50 U/L (38-126); Anion Gap 9 mmol/L (8-16); Aspartate Amino Transferase 36 U/L (14-36); Bilirubin,Total 0.7 mg/dL (0.2-1.3); Blood Urea Nitrogen 25 mg/dL (7-17); Calcium 9.5 mg/dL (8.4-10.2); Carbon Dioxide 24 mmol/L (22-30); Chloride 107 mmol/L (98-107); Estimated Glomerular Filt Rate 44; Glucose 100 mg/dL (65-110); Potassium 4.4 mmol/L (3.4-5.0); Sodium 140 mmol/L (137-145)
[2023-05-05 11:24] LABS: Hepatitis B Surface Antigen Negative (Negative)
[2023-05-05 11:33] LABS: HIV 1/2 Ab P24 Ag Result Negative (Negative)
[2023-05-05 11:39] LABS: Hepatitis C Virus Antibody Negative (Negative)
[2023-05-05 12:03] LABS: Folic Acid > 20.0 ng/mL (2.76->20)
== END 2023-05-05 08:29 | disposition home or self-care (01) ==
LOC: ANHLAB 08:28
PROVIDERS: Internal Medicine; Visit Provider Internal Medicine Hematology & Oncology
DX: D72.819 Decreased white blood cell count, unspecified (principal); Z11.59 Encounter for screening for other viral diseases; I10 Essential (primary) hypertension
CPT/HCPCS: 36415; 80053; 82607; 82746; 84443; 85025; 86703; 86803; 87340; G0432

== ENCOUNTER → 2023-05-06 08:24 | Outpatient (CLI) | payer MEDICARE, SELFPAY ==
--- NOTE | ~2023-05-06 | US_ITS ---
US abdomen complete EXAMINATION: US Abdomen Complete INDICATION: Leukopenia PROCEDURE: Realtime High Resolution abdomen ultrasound. COMPARISON: No prior studies for comparison FINDINGS: Gallbladder within normal limits. No gallstones, pericholecystic fluid, gallbladder wall t hickening or biliary dilatation. Common bile duct measures 5 mm. Liver echotexture is increased, consistent with fatty infiltration.. Pancreas within normal limits. Pancreatic tail is obscured by bowel gas. Spleen is unremarkeable. Renal echotexture is within norm al limits bilaterally without hydronephrosis, contour deforming mass or renal stone. Right kidney jonathan sures 8.9 cm. Left kidney measures 10.4 cm. Visualized aspects of the aorta and IVC are within normal limits. Portal vein is patent. No sonograph ic Conley's sign indicated by the technologist. IMPRESSION: 1: Fatty infiltration of the liver. Reviewed, dictated and finalized at location B.
== END ==
PROVIDERS: PCP Family Medicine; Visit Provider Internal Medicine
DX: D72.819 Decreased white blood cell count, unspecified (principal); K76.0 Fatty (change of) liver, not elsewhere classified
CPT/HCPCS: 76700

== ENCOUNTER 2023-11-10 13:05 | Outpatient (CLI) | payer MEDICARE, SELFPAY ==
[2023-11-10 13:15] LABS: Basophils Percent Auto 0.4 % (0.2-1.2); Eosinophils Percent Auto 0.8 % (0-4.4); Hematocrit 40.6 % (37.0-47.0); Hemoglobin 13.6 g/dL (12.0-15.0); Immature Granulocyte Absolute 0.03 K/mm3 (0.00-0.031); Immature Granulocyte Percent A 0.6 % (0-0.5); Lymphocytes Absolute Auto 2.06 K/mm3 (0.9-3.2); Mean Corpuscular HGB Conc 33.5 g/dl (32-36); Mean Corpuscular Hemoglobin 31.1 pg (26-34); Mean Corpuscular Volume 92.9 fl (80-100); Mean Platelet Volume 10.1 fl (7.4-10.4); Monocytes Absolute Auto 0.9 K/mm3 (0.1-0.6); Monocytes Percent Auto 18.7 % (2.6-8.5); Neutrophils Absolute Auto 1.9 K/mm3 (1.3-6.7); Neutrophils Percent Auto 38.5 % (45.5-73.1); Platelet Count Result 216 k/mm3 (150-375); Red Blood Count 4.37 M/mm3 (4.2-5.4); Red Cell Distribution Width 12.6 % (11.5-14.5)
== END 2023-11-10 13:06 | disposition home or self-care (01) ==
LOC: ANHLAB 13:06
PROVIDERS: PCP Family Medicine; Visit Provider Internal Medicine Hematology & Oncology
DX: D72.819 Decreased white blood cell count, unspecified (principal)
CPT/HCPCS: 36415; 85025

== ENCOUNTER 2024-05-07 14:31 | Outpatient (CLI) | payer MEDICARE, SELFPAY ==
--- NOTE | ~2024-05-07 | MM_ITS ---
EXAMINATION: MM screening jose BI w keyana HISTORY: Screening TECHNIQUE: Craniocaudal and mediolateral oblique 3-D tomosynthesis images were obtained and synthetic 2-D images were generated. CAD analysis was submitted and interpreted. COMPARISON: Comparison to multiple prior studies sequentially, with oldest reviewed study dated 10/2015. BREAST PARENCHYMAL COMPOSITION: Not dense: There are scattered areas of fibroglandular density. FINDINGS: There is no evidence of suspicious mass, calcification, or architectural distortion to sugg est malignancy in either breast. There has been no suspicious interval change. IMPRESSION: 1. No mammographic evidence of malignancy. 2. Recommend routine screening mammography in one year. BI-RADS Category 1: Negative Reviewed, dictated and finalized at location B.
== END 2024-05-07 14:32 | disposition home or self-care (01) ==
PROVIDERS: PCP Family Medicine; Visit Provider Nurse Practitioner Adult Health
DX: Z12.31 Encounter for screening mammogram for malignant neoplasm of breast (principal)
CPT/HCPCS: 77063; 77067

== ENCOUNTER 2024-11-16 09:14 | Outpatient (CLI) | payer MEDICARE, SELFPAY ==
[2024-11-16 09:34] LABS: Basophils Percent Auto 0.6 % (0.2-1.2); Eosinophils Absolute Auto 0.1 K/mm3 (0-0.3); Eosinophils Percent Auto 1.4 % (0-4.4); Hematocrit 39.3 % (37.0-47.0); Hemoglobin 13.3 g/dL (12.0-15.0); Immature Granulocyte Absolute 0.04 K/mm3 (0.00-0.031); Immature Granulocyte Percent A 1.2 % (0-0.5); Lymphocytes Absolute Auto 1.53 K/mm3 (0.9-3.2); Lymphocytes Percent Auto 44.3 % (18.3-44.2); Mean Corpuscular HGB Conc 33.8 g/dl (32-36); Mean Corpuscular Hemoglobin 31.2 pg (26-34); Mean Corpuscular Volume 92.3 fl (80-100); Mean Platelet Volume 10.8 fl (7.4-10.4); Monocytes Absolute Auto 0.7 K/mm3 (0.1-0.6); Monocytes Percent Auto 19.7 % (2.6-8.5); Neutrophils Absolute Auto 1.1 K/mm3 (1.3-6.7); Neutrophils Percent Auto 32.8 % (45.5-73.1); Platelet Count Result 172 k/mm3 (150-375); Red Blood Count 4.26 M/mm3 (4.2-5.4); Red Cell Distribution Width 12.8 % (11.5-14.5); White Blood Count 3.5 K/mm3 (4.5-10.0)
--- OUTSIDE RECORDS SUMMARY | 2024-11-16 09:35 | XMS_ITS | Clinical Summary ---
Author Organization [facility] Address [address] [place], [facility] [address] [place] [address] Phone Care Team Providers Care Pantry Goods Worker Name Role Phone Jae Matthews MD Primary Care Provider [phone] Allergies Active Allergy Reactions Criticality Noted Date Comments Codeine Other (see Comments) 10/27/2016 headache Medications sertraline (ZOLOFT) 25 MG Tablet Take 25 mg by mouth daily. Active metroNIDAZOLE (FLAGYL) 500 MG Tablet Take 1 Tab by mouth 3 times daily. 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 Gender Identity Not on file Sexual Orientation Not on file 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 Not on file Not on philip e Not on file Last Filed Vital Signs Vital Sign Reading Time Taken Comments Blood Pressure 124/80 10/27/2016 8:28 AM CDT Pulse 93 10/27/2016 8:28 AM CDT Temperature 36.2 C (97.2 F) 10/27/2016 8:28 AM CDT Respiratory Rate 16 10/27/2016 8:28 AM CDT Oxygen Saturation 95% 10/27/2016 8:28 AM CDT Inhaled Oxygen Concentration - - Weight 69.4 kg (153 lb) 10/27/2016 8:28 AM CDT Height 167.6 cm (5' 6 ) 10/27/2016 8:28 AM CDT Body Mass Index 24.69 10/27/2016 8:28 AM CDT Plan of Treatment Health Maintenance Due Date Last Done Comments DEXA Bone Density 1950 Hepatitis C Virus (HCV) Screening 1950 TdaP Immunization 1950 Colonoscopy 1994 Colorectal Cancer Screening 1994 Cologuard 12/08/1999 Immunochemical Fecal Occult Blood 12/08/1999 Mammogram 12/08/1999 Pneumococcal Immunization (5 0+ years) (1 of 1 - PCV) 12/08/1999 Zoster Immunization (1 of 2) 12/08/1999 Influenza Immunization (#1) 2024 05/14/2016 SARS-COV-2 Immunization ( - 2023- season) 2024 Respiratory Syncytial Virus (RSV) Immunization (Adult) (1 - 1-dose 75+ series) 2024 Hepatitis B Immunization Aged Out No longer eligible based on patient's age to complete this topic Meningococcal Immunization (ACWY) Aged Out No longer eligible based on patient's age to complete this topic Rotavirus Immunization Aged Out No lo nger eligible based on patient's age to complete this topic Care Teams Pantry Goods Worker Relationship Specialty Start Date End Date Jae Matthews MD [address] [place] [address] PCP - General Family Medicine 08/31/16
--- OUTSIDE RECORDS SUMMARY | 2024-11-16 09:35 | XMS_ITS | Clinical Summary ---
Author Organization [facility] Address [address] [place] [id number] Care Team Providers Care Wet Process Technician Name Role Phone Swapna Singh Primary Care Provider [phone] Allergies Active Allergy Reactions Criticality Noted Date Comments Codeine Other (see comment) 10/27/2016 Headache Most narcotics pt cant take. Drops her kidney function. Latex Rash Medium 03/03/2022 Oxycodone Headache Low 07/25/2020 Medications VITAMIN D, CHOLECALCIFEROL , ORIndications:1 ,000mcg daily Indications: 1,000mcg daily Active RESTASIS 0.05 % ophthalmic emulsion INSTILL 1 DROP INTO BOTH EYES TWICE A DAY 03/28/2020 Active multi vitamin/mineral s tablet Take 1 tablet by mouth daily. Active sertraline 25 MG tabletIndicatio ns:Routine medical exam TAKE 1/2 TABLET BY MOUTH DAILY 90 tablet 1 08/27/2021 Active Ascorbic Acid (VITAMIN C) 100 MG tablet Take 100 mg by mouth in the morning. Active Active Problems Problem Noted Date Diagnosed Date WBC decreased 09/14/2021 Anxiety 06/11/2019 Vitamin D deficiency 06/11/2019 Dry eye syndrome 06/11/2019 Diverticulosis 06/11/2019 Primary osteoarthritis of left knee 06/11/2019 Immunizations Name Administration Dates Next Due Fluzone High Dose - >Age 65 (Prefilled Syringe) 05/12/2020,05/08/2018,05/22/2017 Influenza Adult (Generic) 05/29/2021,05/08/2018, 05/22/2017 Pneumococcal (Pneumovax 23) 05/08/2018 Pneumococcal (Prevnar 13) 05/22/2017 Tdap (Boostrix) 06/11/2019 Tdap (Historical Only-select from magnify glass) 06/11/2019 Family History Medical History Relation Comments Arthritis Brother Cancer Father small cell carci noma CVA Mother Hypertension Mother Stroke Mother Arthritis Sister Relation Status Comments Brother Father Mother Sister Social History Tobacco Use Types Packs/Day Years Used Date Smoking Tobacco: Never Smokeless Tobacco: Never Tobacco Cessation:Counseling Given: No Comments:non smoker Alcohol Use Standard Drinks/Week Comments Yes 0 (1 standard drink = 0.6 oz pur e alcohol) AUDIT-C Answer Date Recorded Frequency of Alcohol Consumption 2-3 times a wee k 06/11/2019 Average Number of Drinks 1 or 2 019 Frequency of Binge Drinking Not on file 11/2018 PHQ-2 Answer Date Recorded PHQ-2 Score - If the patient scores above 3, please move on to questions 3-9 0 05/12/2020 Comments No Sex and Gender Information Value Date Recorded Sex Assigned at Not on file Legal Sex Female 3:37 PM CDT Gender Identity Not on file Sexual Orientation Not on file Last Filed Vital Signs Vital Sign Reading Time Taken Comments Blood Pressure 103/71 05/04/2022 1:36 PM CDT Pulse 99 05/04/2022 1:36 PM CDT Temperature 36.7 C (98.1 F) 05/04/2022 1:36 PM CDT Respiratory Rate 16 05/04/2022 1:36 PM CDT Oxygen Saturation 100% 05/04/2022 1:36 PM CDT Inhaled Oxygen Concentration - - Weight 68.5 kg (151 lb) 05/04/2022 1:36 PM CDT Height 167.6 cm (5' 6 ) 05/04/2022 1:36 PM CDT Body Mass Index 24.37 05/04/2022 1:36 PM CDT Plan of Treatment Health Maintenance Due Date Last Done Comments Colorectal Cancer Screening Colonoscopy (10 Years) 1950 Hepatitis C 12/08/1967 Zoster Vaccines (1 of 2) 12/08/1999 Annual Medicare Wellness Visit 2014 Dexa Scan (General) 2014 Mammogram Screening 07/30/2022 07/30/2020, 07/24/2020, 07/24/2020 COVID-19 Vaccine (2023-2 5 season) 2024 09/17/2020, 08/20/2020 RSV Immunization or 60+ Years (1 - 1-dose 75+ series) 2024 DTaP, Tdap and Td Vaccines ( 3 - Td or Tdap) 06/11/2029 06/11/2019, 06/11/2019 Pneumococcal Vaccine: 65+ Years Completed 05/08/2018, 05/22/2017 Meningococcal B Vaccine Aged Out No l onger eligible based on patient's age to complete this topic Meningococcal Vaccine Aged Out No ulisses ashley eligible based on patient's age to complete this topic RSV Immunizations Under 20 Months Aged Out No longer eligible b ased on patient's age to complete this topic Procedures Procedure Name Priority Date/Time Associated Diagnosis Comments MAMMOGRAM GENERIC (SCAN ORDER) 07/30/2020 from Last 3 Months or Most Recently Relevant to Health Maintenance Results * MAMMOGRAM GENERIC (07/30/2020) Anatomical Region Laterality Modality Other 07/30/2020 Narrative 07/30/2020 Ordered by an unspecified provider. us Documents Scanned SCANNING Final Result from Last 3 Months or Most Recently Relevant to Health Maintenance Insurance [facility] Care Teams Wet Process Technician Relationship Specialty Start Date End Date Swapna Singh APNP [address] [place] [id number] PCP - General NURSE PRACTITIONER 06/11/19
--- OUTSIDE RECORDS SUMMARY | 2024-11-16 09:35 | XMS_ITS | Clinical Summary ---
Author Organization [facility] Address [address] [place] [address] Care Team Providers Care Heating Engineer Name Role Phone Ermias Calero MD Primary Care Provider [phone] Source Comments [facility],non-owned Affiliates and Associated Physician Practices is amultiple site organization consisting of ambulatory clinics and hospital sitesin [place], [place], [place] and [place]. This disclosure is being madepursuant to the Care Everywhere program and may not contain all information available regarding this patient. Last updated 18.[facility] Allergies Active Allergy Reactions Criticality Noted Date Comments Codeine Other 10/27/2016 Headache Most narcotics pt cant take. Drops her kidney function. Oxycodone Headache Low 07/25/2020 Medications * Be aware that medications may not be up to date on this document. Alwaysverify current medications with the patient. Medication Sig Dispensed Refills Start Date End Date Status cycloSPORINE (RESTASIS) 0.05 % ophthalmic suspension INSTILL 1 DROP INTO BOTH EYES TWICE A DAY 03/28/2020 Active Multiple Vitamins-Minerals (MULTI VITAMIN/MINERALS) TABS Take 1 tablet by mouth once daily Active sertraline (ZOLOFT) 25 MG tablet 12.5 mg 05/29/2021 Active Acetaminophen (TYLENOL ARTHRITIS PAIN PO) Active Active Problems No known active problems Social History Tobacco Use Types Packs/Day Years Used Date Smoking Tobacco: Never Smokeless Tobacco: Never Sex and Gender Information Value Date Recorded Sex Assigned at Not on file Gender Identity Not on file Sexual Orientation Not on file Last Filed Vital Signs Vital Sign Reading Time Taken Comments Blood Pressure 119/75 09/11/2021 11:42 AM EMS MANAGER Pulse 103 09/11/2021 11:42 AM EMS MANAGER Temperature - - Respiratory Rate - - Oxygen Saturation - - Inhaled Oxygen Concentration - - Weight 69.9 kg (154 lb) 06/03/2021 9:24 AM CDT Height - - Body Mass Index - - Plan of Treatment Health Maintenance Due Date Last Done Comments BONE DENSITY TESTING 1950 COLOGUARD (AGES 45-75) - COL ON CA SCREENING 1950 COLON MONITORING 1950 COLONOSCOPY - COLON CA SCREENING 1949 CT COLONOGRAPHY - COLON CA SCREENING 1950 Colorectal Cancer Screening 1950 FIT - COLON CA SCREENING 1950 FLEX SIG - COLON CA SCREENING 1950 LIPID TESTING 1950 MAMMOGRAM 1950 HEPATITIS C SCREENING 12/03/1967 DTAP/TDAP/TD VACCINES (1 - Tdap) 1968 PNEUMOCOCCAL VACCINE 50+ (1 of 1 - PCV) 12/08/1999 ZOSTER VACCINE (1 of 2) 12/08/1999 COVID-19 VACCINE (1 - 2023-2 5 season) 2024 DEPRESSION SCREENING 08/08/2024 MEDICARE AWV CALENDAR YEAR 2024 Respiratory Syncytial Virus (RSV) Vaccine Pt: or over 60 yrs (1 - 1-dose 75+ series) 2024 INFLUENZA VACCINE (Season Ended) 2025 05/29/20 21 HEPATITIS B VACCINE Aged Out No longe r eligible based on patient's age to complete this topic HIB VACCINE Aged Out No longer eligi ble based on patient's age to complete this topic HPV VACCINE Aged Out No longer eligi ble based on patient's age to complete this topic MENINGOCOCCAL (Group B) VACC INE SHARED DECISION-MAKING Aged Out No longer eligibl e based on patient's age to complete this topic MENINGOCOCCAL GROUPS A/C/Y/W VACCINE Aged Out No longer eligible b ased on patient's age to complete this topic Care Teams Heating Engineer Relationship Specialty Start Date End Date Ermias Calero MD [address] [place] [id number] PCP - General 05/31/21
--- OUTSIDE RECORDS SUMMARY | 2024-11-16 09:35 | XMS_ITS ---
Author Organization [facility] Address [address] [place], [place] [id number] Care Team Providers Care Directional Survey Drafter Name Role Phone JENNIFER STEPHENIE Unavailable [phone] Fernandez Khan Unavailable Unavailable Allergies Allergen (clinical drug ingredient) Drug/Non Drug Allergy documented on EMR Reaction Allergy Type Onset Date Status codeine Codeine Unknown Drug Allergy Active Latex Latex Unknown Allergy Active REASON FOR VISIT The patient is using the topical medication and reports that it is helping Medications Medication SIG (Take, Route, Frequency, Duration) Notes Start Date End Date Status Ciclopirox 8 % 1 application Externally to toenails Once a day for 30 days one bottle, 6.6mL or similar 12/12/2023 06/09/2024 Active Encounters Encounter Location Date Provider Diagnosis [facility] [address] [place], [place] [id number] 03/12/2024 STEPHENIE DAVIS Tinea unguium B35.1 and Pain in right toe(s) M79.674 Assessments Encounter Date Diagnosis (ICD Code) Assessment Notes Treatment Notes Treatment Clinical Notes Section Notes 03/12/2024 Tinea unguium (ICD-10 - B35.1) FUNGAL TOENAILS: Discussed various treatment options for fungal toenails including debridement, topical antifungals, oral antifungals, toenail avulsion, or toenail matrixectomy. Fungal Toenails, Continue Treatment: The patient will continue using the topical antifungal medication. I explained that it can take 9-12 months for a toenail to grow out and notice change. 03/12/2024 Pain in right toe(s) (ICD-10 - M79.674) Plan Of Treatment Treatment Notes Assessment Notes Tinea unguium FUNGAL TOENAILS: Discussed various treatment options for fungal toenails including debridement, topical antifungals, oral antifungals, toenail avulsion, or toenail matrixectomy. Fungal Toenails, Continue Treatment: The patient will continue using the topical antifungal medication. I explained that it can take 9-12 months for a toenail to grow out and notice change. Next Appt Details Follow Up: 4 Months, Reason: Fungal toenail check. Anticipate 50% improvement Provider Name:STEPHENIE DAVIS, 08:30:00 AM, [address], [facility], [place], [place], [phone], Progress Notes * Katy ROMANDOB:1950 (73 yo F)Acc No.[id number]:03/12/2024 Patient: Padma BERNSTEIN Katy Provider: David Davis DPM :1950 A ge:73 Y S ex:Female Date:03/12/2024 Address:[facility] [address], , [id number] Subjective: * Chief Complaints: * 1 . The patient is using the topical medication and reports that it is helping. * HPI: H PI: [facility] for fungal nail check, right #2 toenail. Patient states their problem is, improving. Patient currently using a topical solution. , MA: LB. * ROS: G eneral / Constitutional: Patient denies c hills, fever, weakness, night sweats. M usculoskeletal: Patient denies c hildhood foot problems, weakness. ? P eripheral Vascular: Patient denies u lceration of feet, cold extremities. ? S kin: Patient denies u lcerations, discoloration. P atient complains of f ungal nails, nail changes. N eurologic: Patient denies b alance difficulty, confusion, difficulty speaking, dizziness. * Medical History: A rthritis. * Surgical History: K nee Surgery . * Medications: T aking Ciclopirox 8 % Solution 1 application Externally to toenails Once a day , stop date 06/09/2024, Notes to Pharmacist: one bottle, 6.6mL or similar, Medication List reviewed and reconciled with the patient * Allergies: C odeine, Latex. Objective: * Vitals: * Examination: C onstitutional: Constitutional T he patient is awake, alert, well developed, well groomed and well nourished.. D ermatologic: Skin findings: S kin is warm, dry, supple with no breaks in the skin.. Nail pathology: N ail 2nd right is elongated, thick, discolored, and dystrophic with subungual debris. They are painful to palpation. The base of the toenail shows clearing and improvement. V ascular: Dorsalis pedis pulse: 2 /4, bilateral. Posterior tibial pulse: 2 /4, bilaterally. Capillary refill: l ess than 3 seconds. Edema: N o edema, bilateral. N eurologic: Gross sensation G ross sensation is intact to light touch..? M usculoskeletal: Muscle Strength M uscle strength is 5/5 in regards to dorsiflexion, plantarflexion, inversion, and eversion in bilateral lower extremities.. ? Assessment: * Assessment: 1. T inea unguium - B35.1 (Primary) 2 . P ain in right toe(s) - M79.674? Plan: * Treatment: * Follow Up: 4 Months (Reason: Fungal toenail check. Anticipate 50% improvement) * Billing Information: * Visit Code: 62583 Office Visit, Est Pt., Level 3. * Procedure Codes: * Electronic signature of STEPHENIE DAVIS DPM on 11/16/2024 at 09:35 AM CDT Sign off status: Pending * Provider: David Davis DPM Date: 03/12/2024 Generated for Faith saez/Roddy/Natanael on: 0 11/16/2024 09:35 AM CDT History and Physical Notes * HPI (History of Present Illness) Category Sub-Category Detail Notes Category Not es HPI Follow Up Visit Patient presents for follow-up visit for fungal nail check, right #2 toenail. Patient states their problem is, improving. Patient currently using a topical solution. , MA: LB Examination Category Sub-Category Detail Notes Category Not es Dermatologic Skin findings: Skin is warm, dr y, supple with no breaks in the skin. Nail pathology: Nail 2nd right is el ongated, thick, discolored, and dystrophic with subungual debris. They are painful to palpation. The base of the toenail shows clearing and improvement Neurologic Gross sensation Gross sensation is intact to light touch. Vascular Dorsalis pedis pulse: 2/4, bilateral Edema: No edema, bilateral Capillary refill: less than 3 seconds Posterior tibial pulse: 2/4, bilaterally Musculoskeletal Muscle Strength Muscle strength is 5/5 in regards to dorsiflexion, plantarflexion, inversion, and eversion in bilateral lower extremities. Constitutional Constitutional The patient is a wake, alert, well developed, well groomed and well nourished.
--- OUTSIDE RECORDS SUMMARY | 2024-11-16 09:35 | XMS_ITS | Patient Health Record ---
Author Organization [facility] Address [address] [place], [place] [id number] Care Team Providers Care Living Nurse Name Role Phone STEPHENIE DAVIS Unavailable [phone] Fernandez Khan Unavailable Unavailable Allergies Allergen (clinical drug ingredient) Drug/Non Drug Allergy documented on EMR Reaction Allergy Type Onset Date Status codeine Codeine Unknown Drug Allergy Active Latex Latex Unknown Allergy Active Reason For Referral No Information Immunizations Vaccine Route Administration Date Status Comme nts Pneumococcal conjugate PCV 13 Unknown 12/12/2023 Refuse d Influenza, high dose seasonal Unknown 12/12/2023 Refuse d Social History Tobacco Use: Social History Observation Description Date Details (start date - stop date) Never Smoker NA - NA Tobacco Control (Standard) Question Answer Notes Tobacco use: Nonsmoker Vital Signs Height-cm 167.64 cm 10/08/2024 Weight-kg 67.13 kg 10/08/2024 Height 66 in 10/08/2024 Weight 148 lbs 10/08/2024 BMI 23.89 kg/m2 10/08/2024 Encounters Encounter Location Date Provider Diagnosis [facility] [address] [place], [place] [id number] 12/12/2023 STEPHENIE SNOOK Tinea unguium B35.1 and Pain in right toe(s) M79.674 [facility] [address] [place], [place] [id number] 03/12/2024 STEPHENIE SNOOK Tinea unguium B35.1 and Pain in right toe(s) M79.674 [facility] [address] [place], [place] [id number] 07/09/2024 STEPHENIE SNOOK Tinea unguium B35.1 ; Ingrowing nail L60.0 ; Pain in right toe(s) M79.674 and Pain in left toe(s) M79.675 [facility] [address] [place], [place] [id number] 10/08/2024 STEPHENIE SNOOK Tinea unguium B35.1 ; Ingrowing nail L60.0 ; Pain in right toe(s) M79.674 and Pain in left toe(s) M79.675 Assessments Encounter Date Diagnosis (ICD Code) Assessment Notes Treatment Notes Treatment Clinical Notes Section Notes 12/12/2023 Tinea unguium (ICD-10 - B35.1) FUNGAL TOENAILS: Discussed various treatment options for fungal toenails including debridement, topical antifungals, oral antifungals, toenail avulsion, or toenail matrixectomy. NAIL DEBRIDEMENT: Nails 2 right was debrided extensively with nail nippers and emery board, reducing length and girth to pink healthy tissue with any subungual debris and necrotic tissue removed 12/12/2023 Pain in right toe(s) (ICD-10 - M79.674) 03/12/2024 Tinea unguium (ICD-10 - B35.1) FUNGAL [...] Pain in right toe(s) (ICD-10 - M79.674) 07/09/2024 Tinea unguium (ICD-10 - B35.1) FUNGAL TOENAILS: Discussed various treatment options for fungal toenails including debridement, topical antifungals, oral antifungals, toenail avulsion, or toenail matrixectomy. NAIL DEBRIDEMENT: Nails were debrided extensively with nail nippers and emery board, reducing length and girth to pink healthy tissue with any subungual debris and necrotic tissue removed. Fungal Toenails, Continue Treatment: The patient will continue using the topical antifungal medication. I explained that it can take 9-12 months for a toenail to grow out and notice change. 07/09/2024 Ingrowing nail (ICD-10 - L60.0) Slant Back Toenail: Following skin prep, the offending nail border was debrided without anesthesia. The patient was instructed on monitoring for infection or recurrence. 10/08/2024 Tinea unguium (ICD-10 - B35.1) FUNGAL TOENAILS: Discussed various treatment options for fungal toenails including debridement, topical antifungals, oral antifungals, toenail avulsion, or toenail matrixectomy. NAIL DEBRIDEMENT: Nails were debrided extensively with nail nippers and emery board, reducing length and girth to pink healthy tissue with any subungual debris and necrotic tissue removed. Fungal Toenails, Continue Treatment: The patient will continue using the topical antifungal medication. I explained that it can take 9-12 months for a toenail to grow out and notice change. 10/08/2024 Ingrowing nail (ICD-10 - L60.0) Slant Back Toenail: Following skin prep, the offending nail border was debrided without anesthesia. The patient was instructed on monitoring for infection or recurrence. 10/08/2024 Pain in right toe(s) (ICD-10 - M79.674) 07/09/2024 Pain in right toe(s) (ICD-10 - M79.674) 07/09/2024 Pain in left toe(s) (ICD-10 - M79.675) 10/08/2024 Pain in left toe(s) (ICD-10 - M79.675) Plan Of Treatment Next Appt Details Provider Name:STEPHENIE DAVIS, 08:30:00 AM, [address], [facility], [place], [place], [phone], Insurance Providers Payer Name Payer Address Payer Phone Subscriber Number Group Number Insured Name Patient Relationship to Insured Coverage Start Date Coverage End Date [facility] [address] [address] [place], [place] [id number] Katy Roman Self - patient is the insured Medical (General) History Medical History History ICD Code Arthritis Surgical History Surgery Date(Month/Year) Knee Surgery
--- OUTSIDE RECORDS SUMMARY | 2024-11-16 09:35 | XMS_ITS ---
Author Organization [facility] Address [address] [place], [place] [phone] Care Team Providers Care Manager Pharmaceutical Name Role Phone POLOMarychuy STEPHENIE Unavailable [phone] Fernandez Khan Unavailable Unavailable Allergies Allergen (clinical drug ingredient) Drug/Non Drug Allergy documented on EMR Reaction Allergy Type Onset Date Status codeine Codeine Unknown Drug Allergy Active Latex Latex Unknown Allergy Active REASON FOR VISIT The patient has fungal toenails and they are improving with topical medications Social History Tobacco Use: Social History Observation Description Date Details (start date - stop date) Never Smoker NA - NA Tobacco Control (Standard) Question Answer Notes Tobacco use: Nonsmoker Vital Signs Height 66 in 10/08/2024 Weight 148 lbs 10/08/2024 BMI 23.89 kg/m2 10/08/2024 Height-cm 167.64 cm 10/08/2024 Weight-kg 67.13 kg 10/08/2024 Encounters Encounter Location Date Provider Diagnosis [facility] [address] [place], [place] [phone] 10/08/2024 STEPHENIE DAVIS Tinea unguium B35.1 ; Ingrowing nail L60.0 ; Pain in right toe(s) M79.674 and Pain in left toe(s) M79.675 Assessments Encounter Date Diagnosis (ICD Code) Assessment Notes Treatment Notes Treatment Clinical Notes Section Notes 10/08/2024 Tinea unguium (ICD-10 - B35.1) FUNGAL [...] Pain in right toe(s) (ICD-10 - M79.674) 10/08/2024 Pain in left toe(s) (ICD-10 - M79.675) Plan Of Treatment Treatment Notes Assessment Notes [...] toenail to grow out and notice change. Ingrowing nail Slant Back Toenail: Following skin prep, the offending nail border was debrided without anesthesia. The patient was instructed on monitoring for infection or recurrence. Next Appt Details Follow Up: 10 weeks, Reason: At risk foot care Provider Name:STEPHENIE DAVIS, 08:30:00 AM, [address], [address], [phone], Progress Notes * Katy ROMANDOB:1950 (73 yo F)Acc No.[id number]:10/08/2024 Patient: Katy ROMERO Provider: David Davis DPM :1950 A ge:73 Y S ex:Female Date:10/08/2024 Address:[address], -, [place], [id number] Subjective: * Chief Complaints: * T he patient has fungal toenails and they are improving with topical medications * HPI: H PI: Follow Up Visit P jaxson presents for follow-up visit for a fungal nail check. Patient states their problem is, improving. Patient states that she was given a sudanese last visit and it has helped a lot. Patient states that the fungus has now moved to her left great toe as well. MA: ars. * ROS: G eneral / Constitutional: Patient [...] confusion, difficulty speaking, dizziness. * Medical History: * Surgical History: K nee Surgery * Hospitalization/Major Diagno stic Procedure: * Social History: T obacco Use: T obacco Control (Standard) T obacco use: N onsmoker. D rugs/Alcohol: D o you drink alcohol?: Yes, Socially. * Medications: * Allergies: C odeineLatexno[Allergies Verified] Objective: * Vitals: S hoe Size: 9, Wt:148lbs, Wt-k.13 kg, Ht: 66 in, Ht-cm: 167.64 cm, BMI:23.89Index, Body Surface Area: 1.77. * Examination: C onstitutional: Constitutional T he patient is awake, alert, well developed, well groomed and well nourished , The patient is awake, alert, well developed, well groomed and well nourished. D ermatologic: Skin findings: S kin is warm, dry, supple with no breaks in the skin , Skin is thin, atrophic and lacking pedal hair. Nail pathology: N ails 1 b ilateral and right 2nd are elongated, thick, discolored, and dystrophic with subungual debris. They are painful to palpation.? Ingrown Nail N ail is incurvated on the medial and lateral nail fold of the left and right hallux. V ascular: Dorsalis pedis pulse: 2 /4, bilateral , 1/4 b ilateral.? Posterior tibial pulse: 2 /4, bilateral , 0/4 b ilateral. Capillary refill: l ess than 3 seconds , greater than 3 seconds. Edema: N o edema, bilateral , No edema, bilateral. ? N eurologic: Gross sensation G ross sensation is intact to light touch , Gross sensation is intact to light touch. M usculoskeletal: Muscle Strength M uscle strength is 5/5 in regards to dorsiflexion, plantarflexion, inversion, and eversion in bilateral lower extremities , Muscle strength is 5/5 in regards to dorsiflexion, plantarflexion, inversion, and eversion in bilateral lower extremities. Assessment: * Assessment: 1. T inea unguium - B35.1 (Primary) 2 . I ngrowing nail - L60.0 ?3. P ain in right toe(s) - M79.674 4 . P ain in left toe(s) - M79.675? Plan: * Treatment: 2. I ngrowing nail Notes: Slant Back Toenail: Following skin prep, the offending nail border was debrided without anesthesia. The patient was instructed on monitoring for infection or recurrence. * Procedure Codes: * Follow Up: 1 0 weeks (Reason: At risk foot care) * Billing Information: * Visit Code: 67220 Office Visit, Est Pt., Level 3. * Procedure Codes: * Sign off status: Completed true * Provider: David Davis DPM Date: 0 10/08/2024 Generated for Faith saez/Roddy/Natanael on: 0 11/16/2024 09:31 AM CDT History and Physical Notes * HPI (History of Present Illness) Category Sub-Category Detail Notes Category Not es HPI Follow Up Visit Patient presents for follow-up visit for a fungal nail check. Patient states their problem is, improving. Patient states that she was given a sudanese last visit and it has helped a lot. Patient states that the fungus has now moved to her left great toe as well. MA: ars Examination Category Sub-Category Detail Notes Category Not es Dermatologic Skin findings: Skin is warm, dr y, supple with no breaks in the skin , Skin is thin, atrophic and lacking pedal hair Nail pathology: Nails 1 bilateral an d right 2nd are elongated, thick, discolored, and dystrophic with subungual debris. They are painful to palpation Ingrown Nail Nail is incurvated o n the medial and lateral nail fold of the left and right hallux Neurologic Gross sensation Gross sensation is intact to light touch , Gross sensation is intact to light touch Vascular Dorsalis pedis pulse: 2/4, bilateral , 1/ 4 bilateral Edema: No edema, bilateral , No edema, bilateral Capillary refill: less than 3 seconds , greater than 3 seconds Posterior tibial pulse: 2/4, bilateral , 0/4 bilateral Musculoskeletal Muscle Strength Muscle strength is 5/5 in regards to dorsiflexion, plantarflexion, inversion, and eversion in bilateral lower extremities , Muscle strength is 5/5 in regards to dorsiflexion, plantarflexion, inversion, and eversion in bilateral lower extremities Constitutional Constitutional The patient is a wake, alert, well developed, well groomed and well nourished , The patient is awake, alert, well developed, well groomed and well nourished
--- OUTSIDE RECORDS SUMMARY | 2024-11-16 09:35 | XMS_ITS | Referral Summary ---
Author Organization [facility] [place] [address] Care Team Providers Care Collar Separator Name Role Phone Balaji Pandey MD Unavailable [phone] Emery Armas MD Unavailable [phone] Fernandez Khan MD Primary Care Provider [phone] Allergies Active Allergy Reactions Criticality Noted Date Comments Codeine Headache Low 04/08/2009 Latex Rash Medium 03/03/2022 Meperidine Hypotension High 04/15/2023 Other Other (See comments) Low 06/13/2020 Narcotics- Blood pressure and oxygen levels dropped. Also lost kidney function Oxycodone Headache Low 07/25/2020 Medications Restasis 0.05 % ophthalmic emulsion Administer 1 drop into both eyes every 12 (twelve) hours 0 Active calcium carbonate (TUMS) 500 mg (200 mg elemental) chewable tablet Take 1 tablet/chew tab (500 mg total) by mouth as needed Active cholecalciferol , vitamin D3, 1,000 unit tablet,chewable Take 1 tablet/chew tab by mouth every morning Active acetaminophen 500 mg capsuleIndicati ons:Pain Take 2 capsules (1,000 mg total) by mouth every 8 (eight) hours 90 tablet 2 Active amoxicillin 500 mg capsule TAKE 4 CAPSULES BY MOUTH 1 HOUR PRIOR TO APPT 3 Active omega-3 fatty acids-fish oil 360-1,200 mg capsule Take 1 capsule by mouth Active coenzyme Q10 10 mg capsule Take 1 capsule (10 mg total) by mouth daily Active Active Problems Problem Noted Date Diagnosed Date Tinnitus of both ears 12/20/2022 Sensorineural hearing loss (SNHL) of both ears 0 12/20/2022 Avascular necrosis of bone of hip, right 022 History of thrombocytopenia 02/23/2022 Primary osteoarthritis of right hip 01/26/2022 Overview (01/26/2022): Added automatically from request for surgery [id number] WBC decreased 09/14/2021 Leukopenia 06/13/2020 Anxiety 06/11/2019 Diverticulosis 06/11/2019 Dry eye syndrome 06/11/2019 Primary osteoarthritis of left knee 06/11/2019 Osteoarthrosis involving lower leg 09/09/2014 Overview (01/26/2022): 2015 IMO Updt Abdominal pain, epigastric 10/27/2010 Allergic rhinitis 04/08/2009 Overview (01/26/2022): 07/15 Non-seasonal allergic rhinitis due to pollen 08/2008 Human papillomavirus in cond itions classified elsewhere and of unspecified site 04/08/2009 Overview (01/26/2022): infection Hyperlipidemia 04/08/2009 Overview (01/26/2022): 07/15 MVP (mitral valve prolapse) 04/08/2009 Vitamin D deficiency 04/08/2009 Overview (01/26/2022): 07/15 Immunizations Immunization Administration Dates Next Due Influenza, Trivalent, High D ose, Split, Preservative Free, Intramuscular 05/12/2020,05/08/2018,05/22/2017 Influenza, Unspecified 05/29/2021 Pneumococcal Conjugate PCV 13 05/22/2017 Pneumococcal Polysaccharide PPV23 05/08/2018 Social History Tobacco Use Types Packs/Day Years Used Date Smoking Tobacco: Never Smokeless Tobacco: Never Alcohol Use Standard Drinks/Week Comments Not Currently 0 (1 standard drink = 0.6 oz pur e alcohol) AUDIT-C Answer Date Recorded Q1: How often do you have a drink containing alc ohol? Monthly or less 03/03/2022 Q2: How many drinks containi ng alcohol do you have on a typical day when you are drinking? 1 or 2 03/03/2022 Q3: How often do you have si x or more drinks on one occasion? 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 Gender Identity Not on file Sexual Orientation Not on file Last Filed Vital Signs Vital Sign Reading Time Taken Comments Blood Pressure 109/56 03/04/2022 8:00 AM CDT Pulse 64 03/04/2022 8:00 AM CDT Temperature 36.7 C (98 F) 03/04/2022 9:00 AM CDT Respiratory Rate 18 12/20/2022 1:15 PM CDT Oxygen Saturation 100% 03/04/2022 9:00 AM CDT Inhaled Oxygen Concentration - - Weight 65.7 kg (144 lb 12.8 oz) 05/26/2023 9:32 AM CDT Height 167.6 cm (5' 6 ) 05/26/2023 9:32 AM CDT Body Mass Index 23.37 05/26/2023 9:32 AM CDT Plan of Treatment Not on file Medical Devices Implanted Type Area Hydroelectric Systems Technician Device Identifier Shelf Expiration Date Model / Serial / Lot Total Knee Bilater al: Knee [employer] G7 54mm Multihole Hip F Hemisphere Offset Shell Acetabular [id number] - [id number] Implanted:Qty: 1 on 03/03/2022 by Ciaran Garnica MD at [facility] Right: Hip [employer] [id number] 08/19/2031 [id number] / / [id number] [employer] G7 40mm Lumen Hip F Liner Acetabular Longevity Sterile Latex Free [id number] - [id number] Implanted:Qty: 1 on 03/03/2022 by Ciaran Garnica MD at [facility] Right: Hip [employer] [id number] 11/06/[id number] / / [id number] [employer] Trilogy 6.5mm 30mm Self Tap Acetabular Cortical Screw Bone [id number] - [id number] Implanted:Qty: 1 on 03/03/2022 by Ciaran Garnica MD at [facility] Right: Hip [employer] [id number] 12/22/2031 [id number] / / [id number] [employer] Trilogy 6.5mm 30mm Self Tap Acetabular Cortical Screw Bone [id number] - [id number] Implanted:Qty: 1 on 03/03/2022 by Ciaran Garnica MD at [facility] Right: Hip [employer] [id number] 12/01/2031 [id number] / / [id number] [employer] Articul/Yonis 40mm Total Stabilize Hip +5mm 12/14 Taper Head Latex Free [id number] - [id number] Implanted:Qty: 1 on 03/03/2022 by Ciaran Garnica MD at [facility] Right: Hip [employer] [id number] 11/05/2026 [id number] / / [id number] [employer] Actis 105mm Collar Hip 5 Standard Offset Stem Femoral 1010-11-050 - [id number] Implanted:Qty: 1 on 03/03/2022 by Ciaran Garnica MD at [facility] Right: Hip [employer] [id number] 09/07/20311010-06-050 / / Insurance [facility] MEDICARE [facility]AGE [facility] Address: [address] [place] [address] [facility] MDCR HMO REF [facility] Address: [place] [id number] MEDICARE ADVANTAGE [facility] Address: [address] [place] [address] Advance Directives For more information, please contact: [phone] * Full Code (Latest Code Status on File) Date Activated Date Inactivated Comments 03/03/2022 11:39 AM 03/04/2022 2:57 PM Care Teams Collar Separator Relationship Specialty Start Date End Date Fernandez Khan MD PCP - General Family Medicine 12/03/22 Balaji Pandey MD Consulting Physician Hematology and Oncology 07/08/21 Emery Armas MD Consulting Physician Orthopedic Surgery 10/09/21
--- OUTSIDE RECORDS SUMMARY | 2024-11-16 09:35 | XMS_ITS | Clinical Summary ---
Author Organization [facility] Address [facility] [place] [address] Care Team Providers Care Performance Test Consultant Name Role Phone Balaji Pandey MD Unavailable [phone] Emery Armas MD Unavailable [phone] Fernandez Khan MD Primary Care Provider [phone] Allergies Active Allergy Reactions Criticality Noted Date [...] (01/26/2022): Added automatically from request for surgery [id number] WBC decreased 09/14/2021 Leukopenia 06/13/2020 Anxiety 06/11/2019 [...] PCV 13 05/22/2017 Pneumococcal Polysaccharide PPV23 05/08/2018 Surgical History Surgery Date Site/Laterality Comments HYSTERECTOMY NASAL SEPTUM SURGERY TOTAL KNEE ARTHROPLASTY OOPHORECTOMY COLONOSCOPY TOTAL KNEE ARTHROPLASTY 08/08/2016 - 08/07/2017 Right BREAST SURGERY lumpectomy right side 2000 JOINT REPLACEMENT Bilat knee replacement SEPTOPLASTY 06/06/2018 Bilateral Medical History Medical History Date Comments Hypercholesteremia Leukopenia PONV (postoperative nausea and vomiting) Irritable bowel syndrome Anxiety 2021 Arthritis Nasal septal deviation Sinusitis Family History Medical History Relation Name Comments Arthritis Father Jorge Alberto Roman Cancer Father Jorge Alberto Roman Anesthesia problems Neg Hx Relation Name Status Comments Father Jorge Alberto Roman Social History Tobacco Use Types Packs/Day Years [...] on file 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 Gender Identity Not on file Sexual Orientation Not on file Obstetrics History Para Term AB IAB SAB Ectopic Multiple Livin g Live Births 3 2 Date Outcome GA Total Labor Labor/2nd/3rd Weight Sex Type Anes PTL Adrienne A1 A5 Name Clin Para Para Last Filed Vital Signs Vital Sign Reading [...] 05/26/2023 9:32 AM CDT Plan of Treatment Health Maintenance Due Date Last Done Comments Breast Cancer Screening-Mammogram 1950 Colon Cancer Screening-Colonoscopy 1950 Depression Screening 1950 Hepatitis C Screening 1950 Osteoporosis Screening-Bone Density Scan 1950 DTaP/Tdap/Td Vaccine (1 - Tdap) 1960 Hepatitis B Screening 12/08/1967 Zoster Vaccine (1 of 2) 12/08/1999 Well Visit 65+ 2014 Fall Risk Assessment 03/04/2023 03/04/2022 Covid-19 Vaccine (3 - 2023-2 5 season) 2024 09/17/2020, 08/20/2020 Influenza Vaccine (#1) 2024 , 05/29/2021, 05/12/2020, Additional history exists Pneumococcal vaccine 65+ Completed 05/08/2018, 05/08 Medical Devices Implanted Type Area Flower Pot Press Operator Device Identifier Shelf Expiration Date Model / Serial / Lot Total Knee Bilater al: Knee [employer] G7 54mm Multihole Hip F Hemisphere Offset Shell Acetabular [id number] - [id number] Implanted:Qty: 1 on 03/03/2022 by Ciaran Garnica MD at [facility] Right: Hip [employer] [id number] 08/19/2031 [id number] / / [id number] [employer] G7 40mm Lumen Hip F Liner Acetabular Longevity Sterile Latex Free [id number] - [id number] Implanted:Qty: 1 on 03/03/2022 by Ciaran Garnica MD at [facility] Right: Hip [employer] [id number] 11/06/2026 [id number] / / [id number] [employer] Trilogy 6.5mm 30mm Self Tap Acetabular Cortical Screw Bone [id number] - [id number] Implanted:Qty: 1 on 03/03/2022 by Ciaran Garnica MD at [facility] Right: Hip [employer] [id number] 12/22/2031 [id number] / / [id number] [employer] Trilogy 6.5mm 30mm Self Tap Acetabular Cortical Screw Bone [id number] - [id number] Implanted:Qty: 1 on 03/03/2022 by Ciaran Garnica MD at [facility] Right: Hip [employer] [id number] 12/01/2031 [id number] / / [id number] [employer] Articul/Yonis 40mm Total Stabilize Hip +5mm 12/14 Taper Head Latex Free [id number] - [id number] Implanted:Qty: 1 on 03/03/2022 by Ciaran Garnica MD at [facility] Right: Hip [employer] [id number] 11/05/2026 [id number] / / [id number] [employer] Actis 105mm Collar Hip 5 Standard Offset Stem Femoral 1010-11-050 - [id number] Implanted:Qty: 1 on 03/03/2022 by Ciaran Garnica MD at [facility] Right: Hip [employer] [id number] 09/07/203111-050 / / Insurance [facility] MEDICARE ADVANTAGE [facility]ICARE Address: [facility] [address] [place] [address] [facility] MDCR HMO REF [facility] MEDICARE ADVANTAGE [place] [id number] Advance Directives For more information, please contact: [phone] * Full Code (Latest Code Status on File) Date Activated Date Inactivated Comments 03/03/2022 11:39 AM 03/04/2022 2:57 PM Care Teams Performance Test Consultant Relationship Specialty Start Date End Date Fernandez Khan MD PCP - General Family Medicine 12/03/22 Balaji Pandey MD Consulting Physician Hematology and Oncology 07/08/21 Emery Armas MD Consulting Physician Orthopedic Surgery 10/09/21
--- OUTSIDE RECORDS SUMMARY | 2024-11-16 09:35 | XMS_ITS ---
Author Organization [facility] Address [address] [place], [place] [id number] Care Team Providers Care Rehabilitation Teacher Name Role Phone POLOMarychuy STEPHENIE Unavailable [phone] Fernandez Khan Unavailable Unavailable Allergies Allergen (clinical drug ingredient) Drug/Non Drug Allergy documented on EMR Reaction Allergy Type Onset Date Status codeine Codeine Unknown Drug Allergy Active Latex Latex Unknown Allergy Active REASON FOR VISIT The patient has a fungal right 2nd toenail. She is noticing that the great toenails are getting rigid and digging into the sides of the nail folds., Patient presents for at-risk foot care . The patient has painful toenails that cause difficulty with ambulation and shoegear. The onset is gradual Encounters Encounter Location Date Provider Diagnosis [facility] [address] [place], [place] [id number] 07/09/2024 STEPHENIE DAVIS Tinea unguium B35.1 ; Ingrowing nail L60.0 ; Pain in right toe(s) M79.674 and Pain in left toe(s) M79.675 Assessments Encounter Date Diagnosis (ICD Code) Assessment Notes Treatment Notes Treatment Clinical Notes Section Notes 07/09/2024 Tinea unguium (ICD-10 - B35.1) FUNGAL [...] instructed on monitoring for infection or recurrence. 07/09/2024 Pain in right toe(s) (ICD-10 - [...] or recurrence. Next Appt Details Follow Up: 10-12 Weeks, Reas on: At Risk Foot care, sooner if problems arise Provider Name:STEPHENIE DAVIS, 08:30:00 AM, [address], [facility], [place], [place], [id number], Progress Notes * Katy ROMANDOB:1950 (73 yo F)Acc No.[id number]:07/09/2024 Patient: Shahrzad ROMEROith Provider: David Davis DPM :1950 A ge:73 Y S ex:Female Date:07/09/2024 Address:[address] [place] [address] , -, [place], [id number] Subjective: * Chief Complaints: * 1 . The patient has a fungal right 2nd toenail. She is noticing that the great toenails are getting rigid and digging into the sides of the nail folds.. 2. Patient presents for at-risk foot care . The patient has painful toenails that cause difficulty with ambulation and shoegear. The onset is gradual. * HPI: H PI: Follow Up Visit P jaxson presents for follow-up visit for fungal nail check. Patient states she is seeing improvement in her right #2 nail. Patient states she has seen some nail growth, but not 100% yet. Patient also states her left great is tender, and she believes it is from getting a pedicure. MA: LB. sample. * ROS: G eneral / Constitutional: Patient [...] History: K nee Surgery . * Medications: N one * Allergies: C odeine, Latex. Objective: * [...] on monitoring for infection or recurrence. * Follow Up: 1 0-12 Weeks (Reason: At Risk Foot care, sooner if problems arise) * Billing Information: * Visit Code: 56631 Office Visit, Est Pt., Level 3. * Procedure Codes: * Electronic signature of STEPHENIE DAVIS DPM on 11/16/2024 at 09:35 AM CDT Sign off status: Pending * Provider: David Davis DPM Date: 09/09/2023 Generated for Faith saez/Roddy/Natanael on: 0 11/16/2024 09:35 AM CDT History and Physical Notes * HPI (History of Present Illness) Category Sub-Category Detail Notes Category Not es HPI Follow Up Visit Patient presents for follow-up visit for fungal nail check. Patient states she is seeing improvement in her right #2 nail. Patient states she has seen some nail growth, but not 100% yet. Patient also states her left great is tender, and she believes it is from getting a pedicure. MA: LB sample Examination Category Sub-Category Detail Notes Category Not [...]
--- OUTSIDE RECORDS SUMMARY | 2024-11-16 09:36 | XMS_ITS | Clinical Summary ---
Author Organization [facility] Address [address] [place] [address] Care Team Providers Care Ophthalmologist Retina Specialist Name Role Phone Fernandez Khan MD Primary Care Provider [phone] Allergies Active Allergy Reactions Criticality Noted Date Comments Codeine Headache Low 04/08/2009 headache Headache Most narcotics pt cant take. Drops her kidney function. Latex Rash Medium 03/25/2016 Meperidine Hypotension Medium 04/15/2023 Oxycodone Headache Low 07/25/2020 Tramadol Hypotension Medium 04/15/2023 Medications Restasis 0.05 % emulsion INSTILL 1 DROP INTO BOTH EYES TWICE DAILY 03/15/2023 Active cholecalciferol (VITAMIN D3) 25 mcg (1,000 unit) Tablet, Chewable Take by mouth. Active Fish Oil-Paisley-3 Fatty Acids 360-1,200 mg Capsule Take 1 Capsule by mouth. Active coenzyme Q10 Capsule Take 10 mg by mouth daily. Active sertraline (ZOLOFT) 25 mg tablet Take 25 mg by mouth daily. Active Active Problems No known active problems Encounters Date Type Department Care Team Description 11/16/2024 9:45 AM CDT Office Visit [facility] Oncology and Hematology - [address] [place] [phone] Palmer Gibbons MD Arrived 10/24/2024 External Device Data STL ABSTRACTION Provider, Abstract 10/13/2024 External Device Data STL ABSTRACTION Provider, Abstract 10/12/2024 External Device Data STL ABSTRACTION Provider, Abstract 10/09/2024 External Device Data STL ABSTRACTION Provider, Abstract 09/25/2024 External Device Data STL ABSTRACTION Provider, Abstract 09/04/2024 External Device Data STL ABSTRACTION Provider, Abstract 08/29/2024 External Device Data STL ABSTRACTION Provider, Abstract 08/29/2024 External Device Data STL ABSTRACTION Provider, Abstract 08/22/2024 External Device Data STL ABSTRACTION Provider, Abstract from Last 3 Months Family History Medical History Relation Name Comments No Known Problems Brother 1 Arthritis Brother 2 No Known Problems Daughter Cancer Father Heart Disease Mother Stroke Mother No Known Problems Sister 1 Heart Disease Sister 2 No Known Problems Sister 3 No Known Problems Sister 4 No Known Problems Son Relation Name Status Comments Brother 1 Alive Brother 2 Alive Daughter Alive Father Mother Sister 1 Alive Sister 2 Alive Sister 3 Alive Sister 4 Alive Son Alive Social History Tobacco Use Types Packs/Day Years Used Date Smoking Tobacco: Never Smokeless Tobacco: Never Tobacco Cessation:Counseling Given: Not Answered Alcohol Use Standard Drinks/Week Comments Not Currently 3 (1 standard drink = 0.6 oz pur e alcohol) Comments Unknown Sex and Gender Information Value Date Recorded Sex Assigned at Not on file 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 Gender Identity Not on file Sexual Orientation Not on file Last Filed Vital Signs Vital Sign Reading Time Taken Comments Blood Pressure 115/83 11/17/2023 9:50 AM CDT Pulse 102 11/17/2023 9:50 AM CDT Temperature 36.2 C (97.2 F) 11/17/2023 9:50 AM CDT Respiratory Rate 15 11/16/2024 9:34 AM CDT Oxygen Saturation 94% 11/17/2023 9:50 AM CDT Inhaled Oxygen Concentration - - Weight 69.2 kg (152 lb 9.6 oz) 11/16/2024 9:34 A M CDT Height 167.6 cm (5' 6 ) 04/15/2023 9:11 AM CDT Body Mass Index 24.63 04/15/2023 9:11 AM CDT Plan of Treatment Upcoming Encounters Date Type Department Care Team (Late st Contact Info) Description 11/16/2024 9:45 AM CDT Office Visit [facility] Oncology and Hematology - [place] [address] [facility] [address] [place] [phone] Palmer Gibbons MD [address] [facility] [address] [place] [address] Arrived Health Maintenance Due Date Last Done Comments COLORECTAL SCREENING 1994 Colorectal Cancer Screening 1994 FIT-DNA Q 3 years 1994 FIT/FOBT Q 1 year 1994 Flex Sig/CT Colonography Q 5 years 1994 ZOSTER VACCINE (1 of 2) 12/08/1999 OSTEOPOROSIS SCREENING 2014 BREAST CANCER SCREENING 05/15/2019 05/15/20 18, 05/15/2018, 06/10/2016, Additional history exists INFLUENZA VACCINE (#1) 2024 0, 05/12/2020, 05/08/2018, Additional history exists [place] Preventative Visit/Annual Wellness Visit 08/08/2024 RSV VACCINE (60+ or ) (1 - 1-dose 75+ series) 2024 DTAP/TDAP/TD VACCINES (2 - T d or Tdap) 06/11/2029 06/11/2019 PNEUMOCOCCAL VACCINE 50+ YEARS Completed 05/08/2018 , 05/22/2017 Insurance [facility] [id number] Care Teams Ophthalmologist Retina Specialist Relationship Specialty Start Date End Date Fernandez Khan MD [address] [place] [id number] PCP - General Family Practice 04/15/23
[2024-11-16 09:40] LABS: Blood Urea Nitrogen 22 mg/dL (8-26); Carbon Dioxide 20 mmol/L (22-30); Chloride 110 mmol/L (98-109); Estimated Glomerular Filt Rate 40; Glucose 94 mg/dL (70-105); Ionized Calcium (POC) 1.21 mmol/L (1.11-1.31); Potassium 4.8 mmol/L (3.5-4.9); Sodium 140 mmol/L (138-146)
[2024-11-16 10:31] LABS: Alanine Aminotransferase 35 U/L (6-35); Albumin Level 4.5 g/dL (3.5-5.1); Alkaline Phosphatase 62 U/L (38-126); Anion Gap 10 mmol/L (4-12); Aspartate Amino Transferase 33 U/L (14-36); Bilirubin,Total 0.5 mg/dL (0.2-1.3); Blood Urea Nitrogen 23 mg/dL (7-17); Calcium 9.4 mg/dL (8.4-10.2); Carbon Dioxide 20 mmol/L (22-30); Chloride 109 mmol/L (98-107); Estimated Glomerular Filt Rate 46; Glucose 97 mg/dL (65-110); Potassium 4.8 mmol/L (3.4-5.0); Sodium 139 mmol/L (137-145)
== END 2024-11-16 09:15 | disposition home or self-care (01) ==
LOC: ANHLAB 09:15
PROVIDERS: PCP Family Medicine; Visit Provider Internal Medicine Hematology & Oncology
DX: D72.819 Decreased white blood cell count, unspecified (principal)
CPT/HCPCS: 36415; 80047; 80053; 85025

== ENCOUNTER 2025-04-15 10:08 | Outpatient (CLI) | payer MEDICARE, SELFPAY ==
--- NOTE | ~2025-04-15 | US_ITS ---
EXAMINATION: US abdomen complete DATE: 04/15/2025 10:31 INDICATION: Unspecified abdominal pain. TECHNIQUE: Multiple grayscale and Doppler ultrasound images of the abdomen were obtained. COMPARISON: Ultrasound 05/06/2023 FINDINGS: The visualized portions of the head, body, and tail of the pancreas are normal. There is diffuse hepatic steatosis. There is normal flow in main portal vein. The gallbladder is normal in size. No gallstones or gallbladder wall thickening. There was no sonographic Conley's sign. The common duct is normal and measures 4 mm. The inferior vena cava and abdominal aorta are normal. The kidneys are normal in size. The spleen is normal in size. IMPRESSION: 1. Diffuse hepatic steatosis. Reviewed, dictated and finalized at location E.
== END 2025-04-15 10:09 | disposition home or self-care (01) ==
LOC: MICIMG 10:09
PROVIDERS: PCP Family Medicine; Visit Provider Nurse Practitioner Adult Health
DX: R10.9 Unspecified abdominal pain (principal); K76.0 Fatty (change of) liver, not elsewhere classified
CPT/HCPCS: 76700

== ENCOUNTER 2025-05-09 14:43 | Outpatient (CLI) | payer MEDICARE, SELFPAY ==
--- NOTE | ~2025-05-09 | MM_ITS ---
EXAMINATION: MM screening jose BI w keyana HISTORY: Screening TECHNIQUE: Craniocaudal and mediolateral oblique 3-D tomosynthesis images were obtained and synthetic 2-D images were generated. CAD analysis was submitted and interpreted. COMPARISON: Comparison to multiple prior studies sequentially, with oldest reviewed study dated 06/10/2016. BREAST PARENCHYMAL COMPOSITION: Dense: The breasts are heterogeneously dense, which may obscure small masses FINDINGS: There is no evidence of suspicious mass, calcification, or architectural distortion to suggest malignancy in either breast. There has been no suspicious interval change. IMPRESSION: 1. No mammographic evidence of malignancy. 2. Recommend routine screening mammography in one year. BI-RADS Category 1: Negative Reviewed, dictated and finalized at location C.
== END 2025-05-09 14:44 | disposition home or self-care (01) ==
LOC: MICIMG 14:43
PROVIDERS: PCP Family Medicine; Visit Provider Family Medicine
DX: Z12.31 Encounter for screening mammogram for malignant neoplasm of breast (principal)
CPT/HCPCS: 77063; 77067